=== PATIENT | female | born 1935 | race Caucasian/White ===

== ENCOUNTER 2016-08-04 13:59 | Outpatient (CLI) | payer OTHER ==
--- NOTE | 2016-08-04 14:24 | DIAGNOSTIC IMAGING REPORT ---
PROCEDURE: MG UNILAT SCREEN-LEFT W/CAD INDICATION: Screening. Right breast carcinoma and mastectomy. Family history breast carcinoma (mother, niece). TECHNIQUE: CC and MLO digital views. COMPARISON: Compared to 07/29/2013, 07/14/2012, and 03/18/2011. FINDINGS: Computer-aided detection applied. Moderately dense and nodular with a few dystrophic calcifications. No change. IMPRESSION: 1. Negative left mammogram. RESULT CODE: 2- Benign finding(s). A. A negative report should not delay biopsy if a dominant or clinically suspicious mass is present. 10-15% of cancers are not identified by x-ray. B. A negative report may reinforce clinical impression. C. Adenosis and dense breasts may obscure an underlying neoplasm. D. False positive reports average 6-10%. E.. A yearly screening mammogram is recommended. A reminder letter will be scheduled.
== END 2016-08-04 23:00 ==
LOC: MAM SRH 13:59
DX: Z12.31 Encounter for screening mammogram for malignant neoplasm of breast (principal); Z80.3 Family history of malignant neoplasm of breast; Z85.3 Personal history of malignant neoplasm of breast

== ENCOUNTER 2016-08-15 05:39 | Emergency (ER) | payer OTHER ==
--- NOTE | 2016-08-15 06:19 | ED CLINICAL REPORT ---
Clinical Report - Physicians/Mid Levels [facility] [address] [place] [address] 08/15/2016 5:39 [id number] Time Seen: 05:46; initial patient contact. Arrived- By ambulance. Historian- patient. HISTORY OF PRESENT ILLNESS Chief Complaint: RIGHT HIP INJURY. The injury occurred about 2 days ago. Occurred at a [facility]. Fell while walking; tripped. The patient complains of moderate pain in the right lower extremity (hip). No blow to the head, neck pain or loss of consciousness. REVIEW OF SYSTEMS No numbness, chest pain, bladder dysfunction or laceration. All systems otherwise negative, except as recorded above. PAST HISTORY Dizziness. Hypovolemia. Tetanus Status. Immunizations. Herpes Zoster. Breast Cancer. Elevated Cholesterol. Hypertension. Parkinson's Disease. ADDITIONAL SURGERIES: Cholecystectomy. Colonoscopy. . Lower eyelid surgery. Mastectomy. Tonsillectomy. SOCIAL HISTORY Never smoker. No alcohol use or drug use. ADDITIONAL NOTES The nursing notes have been reviewed. PHYSICAL EXAM Appearance: Alert. Oriented X3. No acute distress. Head: Head non-tender. ENT: Pharynx normal. Neck: Painless ROM. Non-tender. Back: No tenderness. ROM normal. Skin: Skin intact. Skin warm and dry. Normal skin color. Extremities: Right hip: mild tenderness located in the lateral aspect of the hip. Neurovascular intact distally. No erythema, swelling, abrasion, ecchymosis or deformity. Neuro: Oriented X 3. No motor deficit. LABS, X-RAYS, AND EKG Rt Hip X-ray: No fracture. Normal alignment. No bony lesion, air in the soft tissue or foreign body. Soft tissues normal. Joint spaces normal. Views: 2 view hip series. Technique: good. The X-rays were independently viewed by me and interpreted contemporaneously by me. Prior films were not available for comparison. Interpretation time: 06:16. PROGRESS AND PROCEDURES Disposition: Discharged to fdc in good condition. Condition: good. CLINICAL IMPRESSION Single contusion to the right hip.No hematoma or skin abrasion. INSTRUCTIONS Apply ice for 20 minutes four times a day until better. Don't apply ice directly to skin. Your Current Medications: CONTINUE TAKING THE FOLLOWING MEDICATIONS: Advil Oral : 200 mg 3x a day. Carbidopa-Levodopa Oral : 25/100 mg 2x a day. Celecoxib Oral. Cortisone injections in hips *. Entacapone Oral : Tablet 200 mg, 2x daily. Glucosamine Chondroitin Joint Oral. Levothyroxine Sodium Oral : 75 mcg. Lisinopril Oral : 40 mg. Lovastatin Oral : 40mg. Magnesium Oral : 64 mg sa 2x a day. Melatonin Oral. Ropinerole* : 25mcg HCG 2x a day. Tylenol Oral : 1000mg 3x a day. Follow-up: Follow up with your doctor in about three days. Call for an appointment. Blood pressure screening was not performed during this visit because the patient has an active diagnosis of hypertension. (Electronically signed by Siddhartha Pastrana Dr. 08/15/2016 6:30)
--- NOTE | 2016-08-15 06:19 | ED ORDER SUMMARY ---
..... Patient: NAHOMI MOE OrderSheet [facility] VisitID: [id number] [address] [place] [address] 81y, F Registration Date/Time: 08/15/2016 ORDER SHEET Weight: 68.4 kg (stated) Allergies: NKDA GENERAL ORDERS: Hip 2V Right w AP Pelvis Urgent (05:46 08/15/2016 Yang Canseco) (Ack 5:48 AMcQuoid ER Tech1) (6:02 Peter) MEDICATION ORDERS: IV FLUIDS: ORDER SHEET NOTES: [Electronically signed by Siddhartha Pastrana Dr. (06:30 08/15/2016)] [Electronically signed by Julissa Wei (06:55 08/15/2016)] [Electronically locked/signed by Julissa Wei (06:55 08/15/2016)]
--- NOTE | 2016-08-15 06:19 | ED NURSING NOTES ---
Clinical Report - Nurses [facility] [address] [place] [address] 08/15/2016 5:39 [id number] Triage time 05:44 Aug 15 2016. Acuity: LEVEL 3. Chief Complaint: FALL while walking, onto a carpeted surface; lost balance. SEPSIS SCREEN: Sepsis Screen: negative. Negative (no infection suspected/documented). AJ COMA SCORE: [place] Coma Scale: 15- eyes open spontaneously (4); best verbal response- oriented x 4 (5); best motor response- obeys commands (6). --05:54 Julissa Wei 05:44 08/15/16. BP: 172/76. HR: 72. RR: 20. O2 saturation: 96% on room air. Temp: 98.8 F (oral). Pain level now: 12/28. --05:54 Julissa Wei. Weight: 68.4 kg stated. Height/Length: 62 inches Per Patient. BMI: 27.6. --05:48 Julissa Wei. Medications Advil Oral 200 mg, 3x a day. Carbidopa-Levodopa Oral 25/100 mg, 2x a day. Entacapone Oral (Tablet 200 mg), 2x daily. Levothyroxine Sodium Oral 75 mcg. Lisinopril Oral 40 mg. Lovastatin Oral 40mg. Magnesium Oral 64 mg sa, 2x a day. Melatonin Oral. Ropinerole 25mcg HCG , 2x a day. Tylenol Oral 1000mg, 3x a day. --05:51 Julissa Wei Celecoxib Oral. --05:51 Julissa Wei Glucosamine Chondroitin Joint Oral. --05:52 Julissa Wei Cortisone injections in hips . --05:52 Julissa Wei. Allergies NKDA. --05:52 Julissa Wei. Medication/allergy information source: the patient. --05:54 Julissa Wei. History Arrived by EMS. Historian: patient. Unaccompanied. Location of injuries: right hip. This occurred (2 days ago). Occurred at home. ( Patient reports that she was walking at her assisted living facility when she lost her balance and fell. She states she is unsure of why she fell and that she felt her legs just give out. She complains of right hip pain.). She has had trouble walking. PAST MEDICAL HX: Immunizations: up-to-date. The patient is post-menopausal. SOCIAL HX: Never smoker. No alcohol use or drug use. No infectious disease exposure. ABUSE ASSESSMENT: No report of abuse. NUTRITIONAL RISK ASSESSMENT: The nutritional risk assessment revealed no deficiencies. LEARNING NEEDS ASSESSMENT: The learning needs assessment revealed no barriers. FALL RISK ASSESSMENT: Fall risk assessment completed. Risk factors identified include patient medications, age greater than 65 years, history of fall and impairment. Fall interventions initiated. Patient placed on stretcher. Side rails up x2. Brakes on Bed in low position. Call light in reach of patient. Instructed not to get up without assistance. FUNCTIONAL ASSESSMENT: Functional assessment performed: requires assistance with the activities of daily living; uses walker. SKIN INTEGRITY ASSESSMENT: Skin integrity risk assessment completed. No skin integrity risk identified. --05:54 Julissa Wei Treatment RACECAR DRIVER: See EMS report. EMS treatment RACECAR DRIVER verbally communicated and report reviewed. See report. BP: 184 / 72. HR: 60. O2 saturation: 91 % room air. --05:55 Julissa Wei. PROBLEMS: Dizziness. Hypovolemia. Tetanus Status. Immunizations. Herpes Zoster. Breast Cancer. Elevated Cholesterol. Hypertension. Parkinson's Disease. --05:53 Julissa Wei. ADDITIONAL SURGERIES: Cholecystectomy. Colonoscopy. . Lower eyelid surgery. Mastectomy. Tonsillectomy. --05:53 Julissa Wei. Interventions ID band on patient. To treatment room. --05:54 Julissa Wei. PHYSICAL ASSESSMENT To room via stretcher. Patient gowned. GENERAL / NEURO / PSYCH: Alert. Oriented X 4. Appears in no acute distress. HEENT: Pupils equal, round and reactive to light. Head non-tender. RESPIRATORY: Respirations not labored. CVS: Normal heart rate and rhythm. GI / : Abdomen soft and nontender. EXTREMITIES: Right hip: tenderness. No erythema, swelling or ecchymosis. The right leg is not shortened. SKIN: Skin intact. Skin is warm and dry. --05:54 Julissa Wei. NURSING PROGRESS NOTES Reassurance given to the patient. Two patient identifiers checked. Call light placed in reach. Side rails up x 1. Bed placed in lowest position. Brakes of bed on. --05:55 Julissa Wei Patient transported to radiology by stretcher with tech. (05:55 Aug 15 2016). --05:55 Julissa Wei 06:16 08/15/16. BP: 129/63. HR: 61. RR: 20. O2 saturation: 100% on room air. Pain level now: 12/28. --06:17 Julissa Wei. DISPOSITION / DISCHARGE 06:25 08/15/16. Condition at departure: stable. The goals identified in the patient's plan of care were met. --06:25 Julissa Wei 06:22 08/15/16. BP: 115/50. HR: 68. RR: 20. O2 saturation: 96% on room air. Temp: 98.8 F (oral). Pain level now: 08/27. --06:25 Julissa Wei No learning barriers present. Discharge instructions provided and reviewed with the patient and family. Patient and family verbalized understanding. Written instructions provided in Arabic. ( Follow up with your PCP as needed. Apply ice for twenty minutes at a time. Take anti-inflammatories as needed. Use caution when ambulating, ensure al paths are clear of rugs and cords. Use nightlights in halls and bathrooms. Patient and family verbalized understanding and had no questions at this time.). The patient was discharged by the physician. She was discharged home and accompanied by family. She left the Emergency Department in a wheelchair and via private vehicle. Family member driving. --06:29 Julissa Wei. Locked/Released at 08/15/2016 6:55 by Julissa Wei,
--- NOTE | 2016-08-15 06:19 | ED CLINICAL REPORT ---
Clinical Report - Physicians/Mid Levels [facility] [address] [place] [address] 08/15/2016 5:39 [id number] Time Seen: 05:46; initial patient contact. Arrived- By ambulance. Historian- patient. HISTORY OF PRESENT ILLNESS Chief Complaint: RIGHT HIP INJURY. The injury occurred about 2 days ago. Occurred at a longterm. Fell while walking; tripped. The patient complains of moderate pain in the right lower extremity (hip). No blow to the head, neck pain or loss of consciousness. REVIEW OF SYSTEMS No numbness, chest pain, bladder dysfunction or laceration. All systems otherwise negative, except as recorded above. PAST HISTORY Dizziness. Hypovolemia. Tetanus Status. Immunizations. Herpes Zoster. Breast Cancer. Elevated Cholesterol. Hypertension. Parkinson's Disease. ADDITIONAL SURGERIES: Cholecystectomy. Colonoscopy. . Lower eyelid surgery. Mastectomy. Tonsillectomy. SOCIAL HISTORY Never smoker. No alcohol use or drug use. ADDITIONAL NOTES The nursing notes have been reviewed. PHYSICAL EXAM Appearance: Alert. Oriented X3. No acute distress. Head: Head non-tender. ENT: Pharynx normal. Neck: Painless ROM. Non-tender. Back: No tenderness. ROM normal. Skin: Skin intact. Skin warm and dry. Normal skin color. Extremities: Right hip: mild tenderness located in the lateral aspect of the hip. Neurovascular intact distally. No erythema, swelling, abrasion, ecchymosis or deformity. Neuro: Oriented X 3. No motor deficit. LABS, X-RAYS, AND EKG Rt Hip X-ray: No fracture. Normal alignment. No bony lesion, air in the soft tissue or foreign body. Soft tissues normal. Joint spaces normal. Views: 2 view hip series. Technique: good. The X-rays were independently viewed by me and interpreted contemporaneously by me. Prior films were not available for comparison. Interpretation time: 06:16. PROGRESS AND PROCEDURES Disposition: Discharged to longterm in good condition. Condition: good. CLINICAL IMPRESSION Single contusion to the right hip.No hematoma or skin abrasion. INSTRUCTIONS Apply ice for 20 minutes four times a day until better. Don't apply ice directly to skin. Your Current Medications: CONTINUE TAKING THE FOLLOWING MEDICATIONS: Advil Oral : 200 mg 3x a day. Carbidopa-Levodopa Oral : 25/100 mg 2x a day. Celecoxib Oral. Cortisone injections in hips *. Entacapone Oral : Tablet 200 mg, 2x daily. Glucosamine Chondroitin Joint Oral. Levothyroxine Sodium Oral : 75 mcg. Lisinopril Oral : 40 mg. Lovastatin Oral : 40mg. Magnesium Oral : 64 mg sa 2x a day. Melatonin Oral. Ropinerole* : 25mcg HCG 2x a day. Tylenol Oral : 1000mg 3x a day. Follow-up: Follow up with your doctor in about three days. Call for an appointment. Blood pressure screening was not performed during this visit because the patient has an active diagnosis of hypertension. (Electronically signed by Siddhartha Pastrana Dr. 08/15/2016 6:30)
--- NOTE | 2016-08-15 06:19 | ED NURSING NOTES ---
Clinical Report - Nurses [facility] [address] [place] [address] 08/15/2016 5:39 [id number] Triage time 05:44 Aug 15 2016. Acuity: LEVEL 3. Chief Complaint: FALL while walking, onto a carpeted surface; lost balance. SEPSIS SCREEN: Sepsis Screen: negative. Negative (no infection suspected/documented). AJ COMA SCORE: [place] Coma Scale: 15- eyes open spontaneously (4); best verbal response- oriented x 4 (5); best motor response- obeys commands (6). --05:54 Julissa Wei 05:44 08/15/16. BP: 172/76. HR: 72. RR: 20. O2 saturation: 96% on room air. Temp: 98.8 F (oral). Pain level now: 12/28. --05:54 Julissa Wei. Weight: 68.4 kg stated. Height/Length: 62 inches Per Patient. BMI: 27.6. --05:48 Julissa Wei. Medications Advil Oral 200 mg, 3x a day. Carbidopa-Levodopa Oral 25/100 mg, 2x a day. Entacapone Oral (Tablet 200 mg), 2x daily. Levothyroxine Sodium Oral 75 mcg. Lisinopril Oral 40 mg. Lovastatin Oral 40mg. Magnesium Oral 64 mg sa, 2x a day. Melatonin Oral. Ropinerole 25mcg HCG , 2x a day. Tylenol Oral 1000mg, 3x a day. --05:51 Julissa Wei Celecoxib Oral. --05:51 Julissa Wei Glucosamine Chondroitin Joint Oral. --05:52 Julissa Wei Cortisone injections in hips . --05:52 Julissa Wei. Allergies NKDA. --05:52 Julissa Wei. Medication/allergy information source: the patient. --05:54 Julissa Wei. History Arrived by EMS. Historian: patient. Unaccompanied. Location of injuries: right hip. This occurred (2 days ago). Occurred at home. ( Patient reports that she was walking at her assisted living facility when she lost her balance and fell. She states she is unsure of why she fell and that she felt her legs just give out. She complains of right hip pain.). She has had trouble walking. PAST MEDICAL HX: Immunizations: up-to-date. The patient is post-menopausal. SOCIAL HX: Never smoker. No alcohol use or drug use. No infectious disease exposure. ABUSE ASSESSMENT: No report of abuse. NUTRITIONAL RISK ASSESSMENT: The nutritional risk assessment revealed no deficiencies. LEARNING NEEDS ASSESSMENT: The learning needs assessment revealed no barriers. FALL RISK ASSESSMENT: Fall risk assessment completed. Risk factors identified include patient medications, age greater than 65 years, history of fall and impairment. Fall interventions initiated. Patient placed on stretcher. Side rails up x2. Brakes on Bed in low position. Call light in reach of patient. Instructed not to get up without assistance. FUNCTIONAL ASSESSMENT: Functional assessment performed: requires assistance with the activities of daily living; uses walker. SKIN INTEGRITY ASSESSMENT: Skin integrity risk assessment completed. No skin integrity risk identified. --05:54 Julissa Wei Treatment SERVICE DESK SPECIALIST: See EMS report. EMS treatment SERVICE DESK SPECIALIST verbally communicated and report reviewed. See report. BP: 184 / 72. HR: 60. O2 saturation: 91 % room air. --05:55 Julissa Wei. PROBLEMS: Dizziness. Hypovolemia. Tetanus Status. Immunizations. Herpes Zoster. Breast Cancer. Elevated Cholesterol. Hypertension. Parkinson's Disease. --05:53 Julissa Wei. ADDITIONAL SURGERIES: Cholecystectomy. Colonoscopy. . Lower eyelid surgery. Mastectomy. Tonsillectomy. --05:53 Julissa Wei. Interventions ID band on patient. To treatment room. --05:54 Julissa Wei. PHYSICAL ASSESSMENT To room via stretcher. Patient gowned. GENERAL / NEURO / PSYCH: Alert. Oriented X 4. Appears in no acute distress. HEENT: Pupils equal, round and reactive to light. Head non-tender. RESPIRATORY: Respirations not labored. CVS: Normal heart rate and rhythm. GI / : Abdomen soft and nontender. EXTREMITIES: Right hip: tenderness. No erythema, swelling or ecchymosis. The right leg is not shortened. SKIN: Skin intact. Skin is warm and dry. --05:54 Julissa Wei. NURSING PROGRESS NOTES Reassurance given to the patient. Two patient identifiers checked. Call light placed in reach. Side rails up x 1. Bed placed in lowest position. Brakes of bed on. --05:55 Julissa Wei Patient transported to radiology by stretcher with tech. (05:55 Aug 15 2016). --05:55 Julissa Wei 06:16 08/15/16. BP: 129/63. HR: 61. RR: 20. O2 saturation: 100% on room air. Pain level now: 12/28. --06:17 Julissa Wei. DISPOSITION / DISCHARGE 06:25 08/15/16. Condition at departure: stable. The goals identified in the patient's plan of care were met. --06:25 Julissa Wei 06:22 08/15/16. BP: 115/50. HR: 68. RR: 20. O2 saturation: 96% on room air. Temp: 98.8 F (oral). Pain level now: 08/27. --06:25 Julissa Wei No learning barriers present. Discharge instructions provided and reviewed with the patient and family. Patient and family verbalized understanding. Written instructions provided in Thai. ( Follow up with your PCP as needed. Apply ice for twenty minutes at a time. Take anti-inflammatories as needed. Use caution when ambulating, ensure al paths are clear of rugs and cords. Use nightlights in halls and bathrooms. Patient and family verbalized understanding and had no questions at this time.). The patient was discharged by the physician. She was discharged home and accompanied by family. She left the Emergency Department in a wheelchair and via private vehicle. Family member driving. --06:29 Julissa Wei. Locked/Released at 08/15/2016 6:55 by Julissa Wei,
--- NOTE | 2016-08-15 06:19 | ED ORDER SUMMARY ---
..... Patient: NAHOMI MOE OrderSheet [facility] VisitID: [id number] [address] [place] [address] 81y, F Registration Date/Time: 08/15/2016 ORDER SHEET Weight: 68.4 kg (stated) Allergies: NKDA GENERAL ORDERS: Hip 2V Right w AP Pelvis Urgent (05:46 08/15/2016 Yang Canseco) (Ack 5:48 AMcQuoid ER Tech1) (6:02 Peter) MEDICATION ORDERS: IV FLUIDS: ORDER SHEET NOTES: [Electronically signed by Siddhartha Pastrana Dr. (06:30 08/15/2016)] [Electronically signed by Julissa Wei (06:55 08/15/2016)] [Electronically locked/signed by Julissa Wei (06:55 08/15/2016)]
--- NOTE | 2016-08-15 06:55 | ED MED RECONCILIATION SUMMARY ---
Patient: NAHOMI MOE Medication Reconciliation Report [facility] VisitID: [id number] [address] [place] [address] 81y, F Registration Date/Time: 08/15/2016 Weight: 68.4 kg Height/Length: 62 in. BMI: 27.6 ALLERGIES: NKDA The patient's Home Medications are listed below: CONTINUE TAKING THE FOLLOWING MEDICATIONS: Advil Oral 200 mg, 3x a day Carbidopa-Levodopa Oral 25/100 mg, 2x a day Celecoxib Oral Cortisone injections in hips Entacapone Oral (200 mg), 2x daily Glucosamine Chondroitin Joint Oral Levothyroxine Sodium Oral 75 mcg Lisinopril Oral 40 mg Lovastatin Oral 40mg Magnesium Oral 64 mg sa, 2x a day Melatonin Oral Ropinerole 25mcg HCG , 2x a day Tylenol Oral 1000mg, 3x a day The source(s) of the original Home Medication information: patient The following Medications were given to the patient in the Emergency Department: None. The following Medications were prescribed to the patient: None.
--- NOTE | 2016-08-15 06:55 | ED MAR SUMMARY ---
..... Medication Administration Record [facility] [address] [place], [place] [id number] Patient: NAHOMI MOE Visit ID: [id number] 81y, F Weight: 68.4 kg Height/Length: 62 in BMI: 27.6 ALLERGIES: NKDA
--- NOTE | 2016-08-15 06:55 | ED DISCHARGE INSTRUCTIONS ---
Patient: NAHOMI MOE General Instructions [facility] VisitID: [id number] [place] [address] 81y, F Registration Date/Time: 08/15/2016 Single contusion to the right hip.No hematoma or skin abrasion. INSTRUCTIONS Apply ice for 20 minutes four times a day until better. Don't apply ice directly to skin. Your Current Medications: CONTINUE TAKING THE FOLLOWING MEDICATIONS: Advil Oral : 200 mg 3x a day. Carbidopa-Levodopa Oral : 25/100 mg 2x a day. Celecoxib Oral. Cortisone injections in hips *. Entacapone Oral : Tablet 200 mg, 2x daily. Glucosamine Chondroitin Joint Oral. Levothyroxine Sodium Oral : 75 mcg. Lisinopril Oral : 40 mg. Lovastatin Oral : 40mg. Magnesium Oral : 64 mg sa 2x a day. Melatonin Oral. Ropinerole* : 25mcg HCG 2x a day. Tylenol Oral : 1000mg 3x a day. Follow-up: Follow up with your doctor in about three days. Call for an appointment. Blood pressure screening was not performed during this visit because the patient has an active diagnosis of hypertension. ADDITIONAL INFORMATION Contusion:Lower Extremity You have a CONTUSION of your LOWER extremity (leg, knee, ankle, foot, or toes). This causes local pain, swelling and sometimes bruising. There are no broken bones. This injury may take from a few days to a few weeks to heal. Home Care: 1) Keep your leg elevated to reduce pain and swelling. When sleeping, place a pillow under the injured leg. When sitting, support the injured leg so it is level with your waist. This is very important during the first 48 hours. 2) If CRUTCHES have been advised, do not bear full weight on the injured leg until you can do so without pain. You may return to sports when you are able to hop and run on the injured leg without pain. 3) Apply an ice pack (ice cubes in a plastic bag, wrapped in a towel) over the injured area for 20 minutes every 1-2 hours the first day for pain relief. Continue this 3-4 times a day until the pain and swelling goes away. 4) You may use acetaminophen (Tylenol) or ibuprofen (Motrin, Advil) to control pain, unless another pain medicine was prescribed. [ NOTE : If you have chronic liver or kidney disease or ever had a stomach ulcer or GI bleeding, talk with your doctor before using these medicines.] Follow Up with your doctor or this facility if you are not starting to improve within the next THREE days. [NOTE: If X-rays were taken, they will be reviewed by a radiologist. You will be notified of any new findings that may affect your care.] Get Prompt Medical Attention if any of the following occur: -- Pain or swelling increases -- Toes become cold, blue, numb or tingly -- Redness, warmth or drainage from the skin You have been given the following additional information: Contusion, Lower Extremity (Electronically signed by Siddhartha Pastrana Dr. 08/15/2016 6:30)
--- NOTE | 2016-08-15 06:55 | ED MED RECONCILIATION SUMMARY ---
Patient: NAHOMI MOE Medication Reconciliation Report [facility] VisitID: [id number] [address] [place] [address] 81y, F Registration Date/Time: 08/15/2016 Weight: 68.4 kg Height/Length: 62 in. BMI: 27.6 ALLERGIES: NKDA The patient's Home Medications are listed below: CONTINUE TAKING THE FOLLOWING MEDICATIONS: Advil Oral 200 mg, 3x a day Carbidopa-Levodopa Oral 25/100 mg, 2x a day Celecoxib Oral Cortisone injections in hips Entacapone Oral (200 mg), 2x daily Glucosamine Chondroitin Joint Oral Levothyroxine Sodium Oral 75 mcg Lisinopril Oral 40 mg Lovastatin Oral 40mg Magnesium Oral 64 mg sa, 2x a day Melatonin Oral Ropinerole 25mcg HCG , 2x a day Tylenol Oral 1000mg, 3x a day The source(s) of the original Home Medication information: patient The following Medications were given to the patient in the Emergency Department: None. The following Medications were prescribed to the patient: None.
--- NOTE | 2016-08-15 06:55 | ED MAR SUMMARY ---
..... Medication Administration Record [facility] [address] [place], [place] [id number] Patient: NAHOMI MOE Visit ID: [id number] 81y, F Weight: 68.4 kg Height/Length: 62 in BMI: 27.6 ALLERGIES: NKDA
--- NOTE | 2016-08-15 07:06 | DIAGNOSTIC IMAGING REPORT ---
PROCEDURE: XR HIP 2VW W W/O AP PELVIS-RT INDICATION: TRAUMA/INJURY TECHNIQUE: AP view of the pelvis and hips with lateral view of the right hip. COMPARISON: None. FINDINGS: RIGHT HIP: No fracture or dislocation. Normal joint space. PELVIS: Osteopenia. No suspicious osseous lesion. Atherosclerosis. IMPRESSION: 1. No evidence of a fracture 2. Osteopenia
== END 2016-08-15 06:40 | disposition home or self-care (01) ==
LOC: ED SRH 05:39
DX: S70.01XA Contusion of right hip, initial encounter (principal); W01.0XXA Fall on same level from slipping, tripping and stumbling without subsequent striking against object, initial encounter; Y93.01 Activity, walking, marching and hiking; Y92.129 Unspecified place in nursing home as the place of occurrence of the external cause; I10 Essential (primary) hypertension; G20 Parkinson's disease; Z79.899 Other long term (current) drug therapy

== ENCOUNTER 2016-10-03 10:33 | Emergency (ER) | payer OTHER ==
--- NOTE | 2016-10-03 17:18 | ED ORDER SUMMARY ---
..... Patient: NAHOMI MOE OrderSheet [facility] VisitID: [id number] [place] [address] 81y, F Registration Date/Time: 10/03/2016 ORDER SHEET Weight: 68.4 kg Allergies: NKDA GENERAL ORDERS: CBC w Diff Urgent (10:45 10/03/2016 Yang Canseco) (Ack 10:47 Shanika) (11:05 EBsachi) CMP Urgent (10:10/03/2016 Yang Canseco) (Ack 10:47 Shanika) (11:05 EBsachi) UA-Culture if indicated Urgent (10:45 10/03/2016 Yang Canseco) (Ack 10:47 Shanika) (12:12 Shanika) UA-Culture if indicated Urgent (14:51 10/03/2016 Yang Canseco) (14:[facility] MEDICATION ORDERS: IV FLUIDS: IV Saline Lock (10:45 10/03/2016 Yang Canseco) (11:05 EBsachi) IV NS : initial bolus none -, then 1000 mL/hr for X1 (NOW) (11:11 10/03/2016 Yang Canseco) (Ack 11:21 Ruthy) (14:29 [facility]) Zofran IV 4 mg (NOW) (11:12 10/03/2016 Yang Canseco) (Ack 11:21 Ruthy) (Hold 14:51 [facility]) Ceftriaxone IV 1 gm/50mL (NOW) (16:21 10/03/2016 Yang Canseco) (16:28 Ruthy) ORDER SHEET NOTES: [Electronically signed by Jahaira Baer (17:41 10/03/2016)] [Electronically signed by Siddhartha Pastrana Dr. (08:42 10/06/2016)] [Electronically locked/signed by Jahaira Baer (17:41 10/03/2016)]
--- NOTE | 2016-10-03 17:18 | ED CLINICAL REPORT ---
Clinical Report - Physicians/Mid Levels [facility] [address] [place] [address] 10/03/2016 10:34 Patient: NAHOMI MOE Time Seen: 10:42; initial patient contact. Arrived- By private vehicle. Historian- patient. HISTORY OF PRESENT ILLNESS Chief Complaint: DYSURIA. This started about 3 weeks ago and still present. It was gradual in onset and has been constant. The symptoms are described as mild. The patient has had abdominal pain. No pelvic pain, vaginal pain, low back pain, flank pain or hematuria. She has had pain with urination and urgency of urination. The patient has had urinary frequency. Not sexually active. Similar symptoms previously: Many times. ( Pt is currently on Bactrim for a UTI). REVIEW OF SYSTEMS The patient has had nausea. No vomiting, diarrhea, headache, fever or chills. All systems otherwise negative, except as recorded above. PAST HISTORY ( Dizziness. Hypovolemia. Tetanus Status. Immunizations. Herpes Zoster. Breast Cancer. Elevated Cholesterol. Hypertension. Parkinson's Disease. SURGERIES: Cholecystectomy. Colonoscopy. . Lower eyelid surgery. Mastectomy. Tonsillectomy.). Medications: Aricept Oral. Advil Oral 200 mg, 3x a day. Carbidopa-Levodopa Oral 25/100 mg, 2x a day. Celecoxib Oral. Cortisone injections in hips . Entacapone Oral (Tablet 200 mg), 2x daily. Glucosamine Chondroitin Joint Oral. Levothyroxine Sodium Oral 75 mcg. Lisinopril Oral 40 mg. Lovastatin Oral 40mg. Magnesium Oral 64 mg sa, 2x a day. Melatonin Oral. Ropinerole 25mcg HCG , 2x a day. Tylenol Oral 1000mg, 3x a day. Allergies: NKDA. SOCIAL HISTORY Smoker - current status unknown. No drug use. ADDITIONAL NOTES The nursing notes have been reviewed. PHYSICAL EXAM Vital Signs: 10/03/2016 10:48 BP: 144/58. HR: 66. RR: 14. O2 saturation: 98%. Temp: 97.9 F. Have been reviewed. Hypertensive. Heart rate normal. Respiratory rate normal. Temperature normal. Oxygen saturation normal. Appearance: Alert. Oriented X3. No acute distress. HEENT: Normal external inspection. CVS: Heart sounds normal. Rate normal. Rhythm normal. Respiratory: No respiratory distress. Breath sounds normal. Abdomen: Soft. Mild tenderness in the suprapubic area. No guarding or rebound tenderness. Bowel sounds normal. No organomegaly. No mass. Back: Normal external inspection. No CVA tenderness. Skin: Skin warm and dry. Normal skin color. No rash. Extremities: No lower extremity edema. Neuro: Oriented X 3. LABS, X-RAYS, AND EKG Laboratory Tests: UA-Culture if indicated: (SEDA: 10/03/2016 12:00) ( [facility] [place] [place] 12[facility]25[facility] Final results Test Result Flag Units (Reference) URINE COLOR ORANGE URINE APPEARANCE CLEAR URINE GLUCOSE (NEGATIVE) UNABLE TO REPORT DUE TO URINE COLOR INTERFERENCE URINE BILIRUBIN (NEGATIVE) UNABLE TO REPORT DUE TO URINE COLOR INTERFERENCE URINE KETONE (NEGATIVE) UNABLE TO REPORT DUE TO URINE COLOR INTERFERENCE URINE SPECIFIC GRAVITY (1.010-1.030) UNABLE TO REPORT DUE TO URINE COLOR INTERFERENCE URINE PH (5.0-8.0) UNABLE TO REPORT DUE TO URINE COLOR INTERFERENCE URINE PROTEIN (NEGATIVE) UNABLE TO REPORT DUE TO URINE COLOR INTERFERENCE URINE UROBILINOGEN EU/dL (0.2-1.0) UNABLE TO REPORT DUE TO URINE COLOR INTERFERENCE URINE NITRITE (NEGATIVE) UNABLE TO REPORT DUE TO URINE COLOR INTERFERENCE URINE BLOOD (NEGATIVE) UNABLE TO REPORT DUE TO URINE COLOR INTERFERENCE URINE LEUK ESTERASE (NEGATIVE) UNABLE TO REPORT DUE TO URINE COLOR INTERFERENCE URINE RBC 0-1 rbc/hpf (0-1) URINE WBC 1-3 wbc/hpf (0-1) URINE EPITHELIAL CELLS 5-10 EPI/hpf (0-5) URINE BACTERIA FEW (1+) (NONE SEEN) URINE COMMENT CULT NOT INDICATED 1+ MUCOUSPATIENT APPEARS TO BE ON PYRIDIUM CAUSING COLOR INTERFERENCEURINE CULTURES ARE SET-UP BASED ON THE FOLLOWING CRITERIA:POSITIVE NITRITEPOSITIVE LEUKOCYTE ESTERASEGREATER THAN 10 WHITE BLOOD CELLSMODERATE (2+) OR GREATER BACTERIA CBC w Diff: (SEDA: 10/03/2016 11:00) ( [facility] [place] 10/03/2016 11:16) Final results Test Result Flag Units (Reference) WHITE BLOOD COUNT 7.9 K/uL (4.5-11.5) RED BLOOD COUNT 3.97 L M/uL (4.00-5.20) HEMOGLOBIN 13.0 gm/dL (12.0-16.0) HEMATOCRIT 38.7 % (36.0-46.0) MEAN CELL VOLUME 97 fL (80-100) MEAN CORPUSCULAR HGB 33 pg (26-34) MEAN CORPUSCULAR HGB CONC 34 g/dL (31-37) RED CELL DISTRIBUTION WIDTH 14.5 % (11.6-14.8) PLATELET COUNT 194 K/uL (150-400) NEUTROPHIL % 79.9 H % (50-75) LYMPH % 13.7 L % (25-40) MONO % 4.7 % (3-14) EOSINOPHIL % 1.4 % (0-4) BASOPHIL % 0.3 % (0-2) CMP: (SEDA: 10/03/2016 11:00) ( [facility] 10/03/2016 11:44) Final results Test Result Flag Units (Reference) GLUCOSE 142 H mg/dL (70-110) BUN 22 H mg/dL (7-18) CREATININE 1.1 mg/dL (0.6-1.3) Estimated GFR 50.67 mL/min Estimated GFR- >60 mL/min Note: Persistent reduction over 3 months in eGFR<60 mL/min/1.73 m2 defines CKD. Patients with eGFR values>=60 mL/min/1.73 m2 may also have CKD if evidence ofpersistent proteinuria. Additional information may be foundat www.kidney.org. SODIUM 135 L mmol/L (136-145) POTASSIUM 4.2 mmol/L (3.5-5.1) CHLORIDE 101 mmol/L (98-107) CARBON DIOXIDE 29 mmol/L (21-32) CALCIUM 9.2 mg/dL (8.5-10.1) TOTAL PROTEIN 6.6 g/dL (6.4-8.2) ALBUMIN 3.7 g/dL (3.3-5.0) BILIRUBIN, TOTAL 0.5 mg/dL (0.0-1.0) ALKALINE PHOSPHATASE 63 U/L (46-116) AST (SGOT) 121 H U/L (15-37) ALT (SGPT) 29 U/L (12-78) . PROGRESS AND PROCEDURES Disposition: Discharged home in good condition. Condition: good. CLINICAL IMPRESSION Abnormal liver function test: AST/SGOT. Constipation INSTRUCTIONS (Stop taking the current antibiotic that you are on, you do not have a UTI). Your Current Medications: CONTINUE TAKING THE FOLLOWING MEDICATIONS: Advil Oral : 200 mg 3x a day. Aricept Oral. Carbidopa-Levodopa Oral : 25/100 mg 2x a day. Celecoxib Oral. Cortisone injections in hips *. Entacapone Oral : Tablet 200 mg, 2x daily. Glucosamine Chondroitin Joint Oral. Levothyroxine Sodium Oral : 75 mcg. Lisinopril Oral : 40 mg. Lovastatin Oral : 40mg. Magnesium Oral : 64 mg sa 2x a day. Melatonin Oral. Ropinerole* : 25mcg HCG 2x a day. Tylenol Oral : 1000mg 3x a day. Prescription Medications: Zofran (orally disintegrating tablets) 4 mg: take 1 orally every 6 hours as needed for nausea and vomiting. Dispense ten (10). No refill. Substitution is permissible. OTC Medications: Colace 100 mg capsules (available over the counter): take 1 capsule orally, twice daily and for 14 days. One refill. Substitution is permissible. Follow-up: Follow up with your doctor in about three days. Call for an appointment. Blood pressure screening was not performed during this visit because the patient has an active diagnosis of hypertension. (Electronically signed by Siddhartha Pastrana Dr. 10/06/2016 8:42)
--- NOTE | 2016-10-03 17:18 | ED NURSING NOTES ---
Clinical Report - Nurses Located Within [facility] [address] [place] [address] 10/03/2016 10:34 Patient: NAHOMI MOE TRIAGE Triage time 1040. Acuity: LEVEL 3. Chief Complaint: ABDOMINAL PAIN and NAUSEA and (dark urine, UTI sxs). Alert. No acute distress. --10:53 Jahaira Baer 10:48 10/03/16. BP: 144/58. HR: 66. RR: 14. O2 saturation: 98%. Temp: 97.9 F. Pain level now 04/29. --10:53 Jahaira Baer. Weight: 68.4 kg. Height/Length: 62 inches. BMI: 27.6. --10:47 Jahaira Baer. Medications Advil Oral 200 mg, 3x a day. Carbidopa-Levodopa Oral 25/100 mg, 2x a day. Celecoxib Oral. Cortisone injections in hips . Entacapone Oral (Tablet 200 mg), 2x daily. Glucosamine Chondroitin Joint Oral. Levothyroxine Sodium Oral 75 mcg. Lisinopril Oral 40 mg. Lovastatin Oral 40mg. Magnesium Oral 64 mg sa, 2x a day. Melatonin Oral. Ropinerole 25mcg HCG , 2x a day. Tylenol Oral 1000mg, 3x a day. --10:50 Jahaira Baer Aricept Oral. --10:50 Jahaira Baer. Allergies NKDA. --10:50 Jahaira Baer. History Arrived by private vehicle. Historian: patient and family. Accompanied by family. Onset. (1 weeks ago). She has had constipation. Treatment [employer]: Seen within the last 30 days at another facility in a clinic; seen for similar symptoms; labs done- urinalysis; treatment- antibiotic and prescription given. SOCIAL HX: Smoker- current status unknown. --10:53 Jahaira Baer. PROBLEMS: Contusion. Dizziness. Hypovolemia. Herpes Zoster. Breast Cancer. Elevated Cholesterol. Hypertension. Parkinson's Disease. --10:51 Jahaira Baer. ADDITIONAL SURGERIES: Cholecystectomy. Colonoscopy. . Lower eyelid surgery. Mastectomy. Tonsillectomy. --10:51 Jahaira Baer. Interventions ID band on patient. To treatment room. --10:53 Jahaira Baer. PHYSICAL ASSESSMENT To room via wheelchair. Patient gowned. GENERAL / NEURO / PSYCH: Alert. Oriented X 4. Appears in no acute distress. HEENT: Mucous membranes are pink. RESPIRATORY: Respirations not labored. Breath sounds within normal limits. CVS: Normal sinus rhythm noted. Capillary refill less than 2 seconds. GI / : The patient has had nausea. Obesity. Abdominal tenderness. Bowel sounds within normal limits. SKIN: Skin is warm and dry. --10:53 Jahaira Baer. NURSING PROGRESS NOTES Reassurance given. Call light placed in reach. Side rails up x 1. Bed placed in lowest position. Brakes of bed on. Patient ready for evaluation- chart flagged. --10:53 Jahaira Baer 11:05 10/03/2016 Site #1 started via IV in the left antecubital space with an 22g angiocath; one attempt. Blood drawn: rainbow set. Labeled in the presence of the patient and sent to the lab. Saline lock flushed with 10 mL saline. --11:05 Jahaira Baer In/out catheterization. During procedure hand hygiene observed and sterile equipment and aseptic technique used. She tolerated procedure well. Checked patient name and birthdate: patient confirmed. Catheterized urine collected with return of orange-colored cloudy urine; sample sent to lab for urinalysis and culture. Specimen labeled in the presence of the patient. Patient and family informed about reason for wait and about plan of care. Patient waiting for disposition. --13:32 Jahaira Baer 13:30 10/03/16. BP: 161/68. HR: 72. RR: 16. O2 saturation: 100%. --13:32 Jahaira Baer 14:29 10/03/2016 Started bag #1 1000 mL IV Fluids IV NS (Saline); at 1000 mL/hr over 1 hour(s) via site #1 via IV pump. Allergies verified and confirmed 5 rights. IV patency established. IV site checked: no pain, redness, or swelling. IV flushed thoroughly pre- and post-medication administration. --14:29 Jackei Rogers 14:29 10/03/16. ( Pt assisted back to bed from commode. Was provided extra warm blankets.). --14:29 Jackie Rogers 16:28 10/03/2016 Started 1 gm of Ceftriaxone IVPB in bag #1 50 mL; at 100 mL/hr over 30 minute(s) via site #1 via IV pump. Allergies verified and confirmed 5 rights. IV patency established. IV site checked: no pain, redness, or swelling. IV flushed thoroughly pre- and post-medication administration. --16:28 Jahaira Baer Reassessment after medication administered. She is calm and resting quietly and has had no adverse reaction. Overall patient status is the same- she states feels the same. --17:39 Jahaira Baer. DISPOSITION / DISCHARGE 17:40 10/03/2016 Site #1 removed upon discharge. Catheter intact. Pressure dressing applied. --17:40 Jahaira Baer 17:40 10/03/2016 IV Fluids IV NS Discontinued: bag #1 infused upon discharge. Total amount infused: 1000 mL. --17:40 Jahaira Baer 17:40 10/03/2016 Ceftriaxone IVPB Discontinued: bag #2 infused upon discharge. Total amount infused: 50 mL. --17:40 Jahaira Baer Departure time: 1730. Condition at departure: unchanged and stable. No learning barriers present. Discharge instructions provided and reviewed with the patient and family. Reviewed medication(s). Patient and family verbalized understanding. Written instructions provided in Hungarian. The patient was discharged by the physician. She was discharged home and accompanied by family. She left the Emergency Department in a wheelchair and via private vehicle. Family member driving. --17:41 Jahaira Baer 17:39 10/03/16. BP: 127/78. HR: 63. RR: 16. O2 saturation: 98%. Pain level now 2/10. --17:41 Jahaira Baer. Locked/Released at 10/03/2016 17:41 by Jahaira Baer,
--- NOTE | 2016-10-03 17:18 | ED ORDER SUMMARY ---
..... Patient: NAHOMI MOE OrderSheet [facility] VisitID: [id number] [place] [address] 81y, F Registration Date/Time: 10/03/2016 ORDER SHEET Weight: 68.4 kg Allergies: NKDA GENERAL ORDERS: CBC w Diff Urgent (10:45 10/03/2016 Yang Canseco) (Ack 10:47 Shanika) (11:05 EBsachi) CMP Urgent (10:10/03/2016 Yang Canseco) (Ack 10:47 Shanika) (11:05 EBsachi) UA-Culture if indicated Urgent (10:45 10/03/2016 Yang Canseco) (Ack 10:47 Shanika) (12:12 Shanika) UA-Culture if indicated Urgent (14:51 10/03/2016 Yang Canseco) (14:[facility] MEDICATION ORDERS: IV FLUIDS: IV Saline Lock (10:45 10/03/2016 Yang Canseco) (11:05 EBsachi) IV NS : initial bolus none -, then 1000 mL/hr for X1 (NOW) (11:11 10/03/2016 Yang Canseco) (Ack 11:21 Ruthy) (14:29 [facility]) Zofran IV 4 mg (NOW) (11:12 10/03/2016 Yang Canseco) (Ack 11:21 Ruthy) (Hold 14:51 [facility]) Ceftriaxone IV 1 gm/50mL (NOW) (16:21 10/03/2016 Yang Canseco) (16:28 Ruthy) ORDER SHEET NOTES: [Electronically signed by Jahaira Baer (17:41 10/03/2016)] [Electronically signed by Siddhartha Pastrana Dr. (08:42 10/06/2016)] [Electronically locked/signed by Jahaira Baer (17:41 10/03/2016)]
--- NOTE | 2016-10-06 08:43 | ED MAR SUMMARY ---
..... Medication Administration Record [facility] [address] [place] [address] Patient: NAHOMI MOE Visit ID: [id number] 81y, F Weight: 68.4 kg Height/Length: 62 in BMI: 27.6 ALLERGIES: NKDA Start 14:29 10/03/2016 Jackie Rogers,, Stop 17:40 10/03/2016 Jahaira Baer, Medication Administered: IV NS (SALINE), Dose: IV Fluids over 1 hour(s), Rate: 1000 mL/hr, Dispensed: 1000 mL bag, Site: #1 left AC. Medication Ordered: IV NS : initial bolus none -, then 1000 mL/hr for X1 (NOW). Start 16:28 10/03/2016 Jahaira Baer,, Stop 17:40 10/03/2016 Jahaira Baer, Medication Administered: CEFTRIAXONE [IVPB], Dose: 1 gm IVPB over 30 minute(s), Rate: 100 mL/hr, Dispensed: 50 mL bag, Site: #1 left AC. Medication Ordered: Ceftriaxone IV 1 gm/50mL (NOW).
--- NOTE | 2016-10-06 08:43 | ED DISCHARGE INSTRUCTIONS ---
Patient: NAHOMI MOE General Instructions [facility] VisitID: [id number] [place] [address] 81y, F Registration Date/Time: 10/03/2016 Abnormal liver function test: AST/SGOT. Constipation INSTRUCTIONS (Stop taking the current antibiotic that you are on, you do not have a UTI). Your Current Medications: CONTINUE TAKING THE FOLLOWING MEDICATIONS: Advil Oral : 200 mg 3x a day. Aricept Oral. Carbidopa-Levodopa Oral : 25/100 mg 2x a day. Celecoxib Oral. Cortisone injections in hips *. Entacapone Oral : Tablet 200 mg, 2x daily. Glucosamine Chondroitin Joint Oral. Levothyroxine Sodium Oral : 75 mcg. Lisinopril Oral : 40 mg. Lovastatin Oral : 40mg. Magnesium Oral : 64 mg sa 2x a day. Melatonin Oral. Ropinerole* : 25mcg HCG 2x a day. Tylenol Oral : 1000mg 3x a day. Prescription Medications: Zofran (orally disintegrating tablets) 4 mg: take 1 orally every 6 hours as needed for nausea and vomiting. Dispense ten (10). No refill. Substitution is permissible. OTC Medications: Colace 100 mg capsules (available over the counter): take 1 capsule orally, twice daily and for 14 days. One refill. Substitution is permissible. Follow-up: Follow up with your doctor in about three days. Call for an appointment. Blood pressure screening was not performed during this visit because the patient has an active diagnosis of hypertension. ADDITIONAL INFORMATION Constipation (Adult) Constipation is bowel movements that are less frequent than usual. Stools often become very hard and difficult to pass. This may lead to abdominal pain and bloating. It may also cause painful bowel movements. Constipation may be due to a diet thats low in fiber. Some medications, especially pain medications, can also cause it. Constipation may be treated with enemas, suppositories, laxatives or stool softeners. Your doctor will advise you which will work best for you. Follow the advice below to help avoid this problem in the future. Home Care Medication: Take any medicines as directed. Some laxatives are safe only for occasional use. Others can be taken on a regular basis. Talk to your doctor or pharmacist if you have questions. General Care: Prescription pain medications can cause constipation. If you are prescribed pain medications, ask the doctor whether you should also take a stool softener. A diet high in fiber with plenty of fluids helps to maintain regular, soft bowel movements. The following foods are good sources of dietary fiber: Cereals and breads: Whole grain cereal with bran, oatmeal, rolled oats, whole grain breads Fruits: All fruits (fresh and dried), raisins, prunes, apricots, berries, figs Vegetables: Any fresh vegetables, especially peas, broccoli, brussels sprouts, winter squash, green beans, cauliflower, elmore beans, carrots Other: Popcorn, brown rice Drink plenty of water when you increase the amount of fiber you eat. Follow Up with your doctor or return to this facility if symptoms do not improve in the next few days. You may require further tests or a referral to a specialist. Get Prompt Medical Attention if any of the following occur: Fever over 100.4F (38C) Failure to resume normal bowel movements Increasing abdominal or back pain Nausea or vomiting Abdominal swelling Blood in the stool Weakness, dizziness or fainting Unexpected vaginal bleeding Ondansetron Oral disintegrating tablet What is this medicine? ONDANSETRON (on KAVITA se alec) is used to treat nausea and vomiting caused by chemotherapy. It is also used to prevent or treat nausea and vomiting after surgery. How should I use this medicine? These tablets are made to dissolve in the mouth. Do not try to push the tablet through the foil backing. With dry hands, peel away the foil backing and gently remove the tablet. Place the tablet in the mouth and allow it to dissolve, then swallow. While you may take these tablets with water, it is not necessary to do so. Talk to your lokie engineer regarding the use of this medicine in children. Special care may be needed. What side effects may I notice from receiving this medicine? Side effects that you should report to your doctor or health child care lead teacher as soon as possible: allergic reactions like skin rash, itching or hives, swelling of the face, lips, or tongue breathing problems dizziness fast or irregular heartbeat feeling faint or lightheaded, falls fever and chills swelling of the hands and feet tightness in the chest Side effects that usually do not require medical attention (report to your doctor or health child care lead teacher if they continue or are bothersome): constipation or diarrhea headache What may interact with this medicine? Do not take this medicine with any of the following medications: -apomorphine -cisapride -dofetilide -dronedarone -pimozide -thioridazine -ziprasidone This medicine may also interact with the following medications: -carbamazepine -phenytoin -rifampicin -tramadol -other medicines that prolong the QT interval (cause an abnormal heart rhythm) What if I miss a dose? If you miss a dose, take it as soon as you can. If it is almost time for your next dose, take only that dose. Do not take double or extra doses. Where should I keep my medicine? Keep out of the reach of children. Store between 2 and 30 degrees C (36 and 86 degrees F). Throw away any unused medicine after the expiration date. What should I tell my health care provider before I take this medicine? They need to know if you have any of these conditions: heart disease history of irregular heartbeat liver disease low levels of magnesium or potassium in the blood an unusual or allergic reaction to ondansetron, granisetron, other medicines, foods, dyes, or preservatives or trying to get breast-feeding What should I watch for while using this medicine? Check with your doctor or health child care lead teacher as soon as you can if you have any sign of an allergic reaction. Docusate Sodium Oral tablet What is this medicine? DOCUSATE (doc CUE sayt) is stool softener. It helps prevent constipation and straining or discomfort associated with hard or dry stools. How should I use this medicine? Take this medicine by mouth with a glass of water. Follow the directions on the label. Take your doses at regular intervals. Do not take your medicine more often than directed. Talk to your lokie engineer regarding the use of this medicine in children. While this medicine may be prescribed for children as young as 2 years for selected conditions, precautions do apply. What side effects may I notice from receiving this medicine? Side effects that you should report to your doctor or health child care lead teacher as soon as possible: allergic reactions like skin rash, itching or hives, swelling of the face, lips, or tongue Side effects that usually do not require medical attention (report to your doctor or health child care lead teacher if they continue or are bothersome): diarrhea stomach cramps throat irritation What may interact with this medicine? mineral oil What if I miss a dose? If you miss a dose, take it as soon as you can. If it is almost time for your next dose, take only that dose. Do not take double or extra doses. Where should I keep my medicine? Keep out of the reach of children. Store at room temperature between 15 and 30 degrees C (59 and 86 degrees F). Throw away any unused medicine after the expiration date. What should I tell my health care provider before I take this medicine? They need to know if you have any of these conditions: nausea or vomiting severe constipation stomach pain sudden change in bowel habit lasting more than 2 weeks an unusual or allergic reaction to docusate, other medicines, foods, dyes, or preservatives or trying to get breast-feeding What should I watch for while using this medicine? Do not use for more than one week without advice from your doctor or health child care lead teacher. If your constipation returns, check with your doctor or health child care lead teacher. Drink plenty of water while taking this medicine. Drinking water helps decrease constipation. Stop using this medicine and contact your doctor or health child care lead teacher if you experience any rectal bleeding or do not have a bowel movement after use. These could be signs of a more serious condition. You have been given the following additional information: Constipation (Adult) Ondansetron Oral disintegrating tablet Docusate Sodium Oral tablet (Electronically signed by Siddhartha Pastrana Dr. 10/06/2016 8:42)
--- NOTE | 2016-10-06 08:43 | ED MAR SUMMARY ---
..... Medication Administration Record [facility] [address] [place] [address] Patient: NAHOMI MOE Visit ID: [id number] 81y, F Weight: 68.4 kg Height/Length: 62 in BMI: 27.6 ALLERGIES: NKDA Start 14:29 10/03/2016 Jackie Rogers,, Stop 17:40 10/03/2016 Jahaira Baer, Medication Administered: IV NS (SALINE), Dose: IV Fluids over 1 hour(s), Rate: 1000 mL/hr, Dispensed: 1000 mL bag, Site: #1 left AC. Medication Ordered: IV NS : initial bolus none -, then 1000 mL/hr for X1 (NOW). Start 16:28 10/03/2016 Jahaira Baer,, Stop 17:40 10/03/2016 Jahaira Baer, Medication Administered: CEFTRIAXONE [IVPB], Dose: 1 gm IVPB over 30 minute(s), Rate: 100 mL/hr, Dispensed: 50 mL bag, Site: #1 left AC. Medication Ordered: Ceftriaxone IV 1 gm/50mL (NOW).
--- NOTE | 2016-10-06 08:43 | ED DISCHARGE INSTRUCTIONS ---
Patient: NAHOMI MOE General Instructions [facility] VisitID: [id number] [place] [address] 81y, F Registration Date/Time: 10/03/2016 Abnormal liver function test: AST/SGOT. Constipation INSTRUCTIONS (Stop taking the current antibiotic that you are on, you do not have a UTI). Your Current Medications: CONTINUE TAKING THE FOLLOWING MEDICATIONS: Advil Oral : 200 mg 3x a day. Aricept Oral. Carbidopa-Levodopa Oral : 25/100 mg 2x a day. Celecoxib Oral. Cortisone injections in hips *. Entacapone Oral : Tablet 200 mg, 2x daily. Glucosamine Chondroitin Joint Oral. Levothyroxine Sodium Oral : 75 mcg. Lisinopril Oral : 40 mg. Lovastatin Oral : 40mg. Magnesium Oral : 64 mg sa 2x a day. Melatonin Oral. Ropinerole* : 25mcg HCG 2x a day. Tylenol Oral : 1000mg 3x a day. Prescription Medications: Zofran (orally disintegrating tablets) 4 mg: take 1 orally every 6 hours as needed for nausea and vomiting. Dispense ten (10). No refill. Substitution is permissible. OTC Medications: Colace 100 mg capsules (available over the counter): take 1 capsule orally, twice daily and for 14 days. One refill. Substitution is permissible. Follow-up: Follow up with your doctor in about three days. Call for an appointment. Blood pressure screening was not performed during this visit because the patient has an active diagnosis of hypertension. ADDITIONAL INFORMATION Constipation (Adult) Constipation is bowel movements that are less frequent than usual. Stools often become very hard and difficult to pass. This may lead to abdominal pain and bloating. It may also cause painful bowel movements. Constipation may be due to a diet thats low in fiber. Some medications, especially pain medications, can also cause it. Constipation may be treated with enemas, suppositories, laxatives or stool softeners. Your doctor will advise you which will work best for you. Follow the advice below to help avoid this problem in the future. Home Care Medication: Take any medicines as directed. Some laxatives are safe only for occasional use. Others can be taken on a regular basis. Talk to your doctor or pharmacist if you have questions. General Care: Prescription pain medications can cause constipation. If you are prescribed pain medications, ask the doctor whether you should also take a stool softener. A diet high in fiber with plenty of fluids helps to maintain regular, soft bowel movements. The following foods are good sources of dietary fiber: Cereals and breads: Whole grain cereal with bran, oatmeal, rolled oats, whole grain breads Fruits: All fruits (fresh and dried), raisins, prunes, apricots, berries, figs Vegetables: Any fresh vegetables, especially peas, broccoli, brussels sprouts, winter squash, green beans, cauliflower, elmore beans, carrots Other: Popcorn, brown rice Drink plenty of water when you increase the amount of fiber you eat. Follow Up with your doctor or return to this facility if symptoms do not improve in the next few days. You may require further tests or a referral to a specialist. Get Prompt Medical Attention if any of the following occur: Fever over 100.4F (38C) Failure to resume normal bowel movements Increasing abdominal or back pain Nausea or vomiting Abdominal swelling Blood in the stool Weakness, dizziness or fainting Unexpected vaginal bleeding Ondansetron Oral disintegrating tablet What is this medicine? ONDANSETRON (on KAVITA se alec) is used to treat nausea and vomiting caused by chemotherapy. It is also used to prevent or treat nausea and vomiting after surgery. How should I use this medicine? These tablets are made to dissolve in the mouth. Do not try to push the tablet through the foil backing. With dry hands, peel away the foil backing and gently remove the tablet. Place the tablet in the mouth and allow it to dissolve, then swallow. While you may take these tablets with water, it is not necessary to do so. Talk to your welding machine feeder regarding the use of this medicine in children. Special care may be needed. What side effects may I notice from receiving this medicine? Side effects that you should report to your doctor or health skin care technician as soon as possible: allergic reactions like skin rash, itching or hives, swelling of the face, lips, or tongue breathing problems dizziness fast or irregular heartbeat feeling faint or lightheaded, falls fever and chills swelling of the hands and feet tightness in the chest Side effects that usually do not require medical attention (report to your doctor or health skin care technician if they continue or are bothersome): constipation or diarrhea headache What may interact with this medicine? Do not take this medicine with any of the following medications: -apomorphine -cisapride -dofetilide -dronedarone -pimozide -thioridazine -ziprasidone This medicine may also interact with the following medications: -carbamazepine -phenytoin -rifampicin -tramadol -other medicines that prolong the QT interval (cause an abnormal heart rhythm) What if I miss a dose? If you miss a dose, take it as soon as you can. If it is almost time for your next dose, take only that dose. Do not take double or extra doses. Where should I keep my medicine? Keep out of the reach of children. Store between 2 and 30 degrees C (36 and 86 degrees F). Throw away any unused medicine after the expiration date. What should I tell my health care provider before I take this medicine? They need to know if you have any of these conditions: heart disease history of irregular heartbeat liver disease low levels of magnesium or potassium in the blood an unusual or allergic reaction to ondansetron, granisetron, other medicines, foods, dyes, or preservatives or trying to get breast-feeding What should I watch for while using this medicine? Check with your doctor or health skin care technician as soon as you can if you have any sign of an allergic reaction. Docusate Sodium Oral tablet What is this medicine? DOCUSATE (doc CUE sayt) is stool softener. It helps prevent constipation and straining or discomfort associated with hard or dry stools. How should I use this medicine? Take this medicine by mouth with a glass of water. Follow the directions on the label. Take your doses at regular intervals. Do not take your medicine more often than directed. Talk to your welding machine feeder regarding the use of this medicine in children. While this medicine may be prescribed for children as young as 2 years for selected conditions, precautions do apply. What side effects may I notice from receiving this medicine? Side effects that you should report to your doctor or health skin care technician as soon as possible: allergic reactions like skin rash, itching or hives, swelling of the face, lips, or tongue Side effects that usually do not require medical attention (report to your doctor or health skin care technician if they continue or are bothersome): diarrhea stomach cramps throat irritation What may interact with this medicine? mineral oil What if I miss a dose? If you miss a dose, take it as soon as you can. If it is almost time for your next dose, take only that dose. Do not take double or extra doses. Where should I keep my medicine? Keep out of the reach of children. Store at room temperature between 15 and 30 degrees C (59 and 86 degrees F). Throw away any unused medicine after the expiration date. What should I tell my health care provider before I take this medicine? They need to know if you have any of these conditions: nausea or vomiting severe constipation stomach pain sudden change in bowel habit lasting more than 2 weeks an unusual or allergic reaction to docusate, other medicines, foods, dyes, or preservatives or trying to get breast-feeding What should I watch for while using this medicine? Do not use for more than one week without advice from your doctor or health skin care technician. If your constipation returns, check with your doctor or health skin care technician. Drink plenty of water while taking this medicine. Drinking water helps decrease constipation. Stop using this medicine and contact your doctor or health skin care technician if you experience any rectal bleeding or do not have a bowel movement after use. These could be signs of a more serious condition. You have been given the following additional information: Constipation (Adult) Ondansetron Oral disintegrating tablet Docusate Sodium Oral tablet (Electronically signed by Siddhartha Pastrana Dr. 10/06/2016 8:42)
--- NOTE | 2016-10-06 08:43 | ED MED RECONCILIATION SUMMARY ---
Patient: NAHOMI MOE Medication Reconciliation Report [facility] VisitID: [id number] [address] [place] [address] 81y, F Registration Date/Time: 10/03/2016 Weight: 68.4 kg Height/Length: 62 in. BMI: 27.6 ALLERGIES: NKDA The patient's Home Medications are listed below: CONTINUE TAKING THE FOLLOWING MEDICATIONS: Advil Oral 200 mg, 3x a day Aricept Oral Carbidopa-Levodopa Oral 25/100 mg, 2x a day Celecoxib Oral Cortisone injections in hips Entacapone Oral (200 mg), 2x daily Glucosamine Chondroitin Joint Oral Levothyroxine Sodium Oral 75 mcg Lisinopril Oral 40 mg Lovastatin Oral 40mg Magnesium Oral 64 mg sa, 2x a day Melatonin Oral Ropinerole 25mcg HCG , 2x a day Tylenol Oral 1000mg, 3x a day The source(s) of the original Home Medication information: Not obtained. The following Medications were given to the patient in the Emergency Department: IV NS IV Fluids bolus 0, then 1000 mL/hr, administered: 10/03/2016 2:29:00 PM Ceftriaxone [IVPB] IVPB bolus 0, then 1 gm 100 mL/hr, administered: 10/03/2016 4:28:00 PM The following Medications were prescribed to the patient: Colace 100 mg capsules (available over the counter): take 1 capsule orally, twice daily and for 14 days. One refill. Substitution is permissible. -- Siddhartha Pastrana Dr. Zofrnirali (orally disintegrating tablets) 4 mg: take 1 orally every 6 hours as needed for nausea and vomiting. Dispense ten (10). No refill. Substitution is permissible. -- Siddhartha Pastrana Dr.
--- NOTE | 2016-10-06 08:43 | ED MED RECONCILIATION SUMMARY ---
Patient: NAHOMI MOE Medication Reconciliation Report [facility] VisitID: [id number] [address] [place] [address] 81y, F Registration Date/Time: 10/03/2016 Weight: 68.4 kg Height/Length: 62 in. BMI: 27.6 ALLERGIES: NKDA The patient's Home Medications are listed below: CONTINUE TAKING THE FOLLOWING MEDICATIONS: Advil Oral 200 mg, 3x a day Aricept Oral Carbidopa-Levodopa Oral 25/100 mg, 2x a day Celecoxib Oral Cortisone injections in hips Entacapone Oral (200 mg), 2x daily Glucosamine Chondroitin Joint Oral Levothyroxine Sodium Oral 75 mcg Lisinopril Oral 40 mg Lovastatin Oral 40mg Magnesium Oral 64 mg sa, 2x a day Melatonin Oral Ropinerole 25mcg HCG , 2x a day Tylenol Oral 1000mg, 3x a day The source(s) of the original Home Medication information: Not obtained. The following Medications were given to the patient in the Emergency Department: IV NS IV Fluids bolus 0, then 1000 mL/hr, administered: 10/03/2016 2:29:00 PM Ceftriaxone [IVPB] IVPB bolus 0, then 1 gm 100 mL/hr, administered: 10/03/2016 4:28:00 PM The following Medications were prescribed to the patient: Colace 100 mg capsules (available over the counter): take 1 capsule orally, twice daily and for 14 days. One refill. Substitution is permissible. -- Siddhartha Pastrana Dr. Zofrnirali (orally disintegrating tablets) 4 mg: take 1 orally every 6 hours as needed for nausea and vomiting. Dispense ten (10). No refill. Substitution is permissible. -- Siddhartha Pastrana Dr.
== END 2016-10-03 17:30 | disposition home or self-care (01) ==
LOC: ED SRH 10:33
DX: R94.5 Abnormal results of liver function studies (principal); K59.00 Constipation, unspecified; R82.99 Other abnormal findings in urine; Z87.440 Personal history of urinary (tract) infections; R10.30 Lower abdominal pain, unspecified; I10 Essential (primary) hypertension; G20 Parkinson's disease; Z79.52 Long term (current) use of systemic steroids; Z79.1 Long term (current) use of non-steroidal anti-inflammatories (NSAID); Z79.899 Other long term (current) drug therapy
CPT/HCPCS: 81460; 90004; 90100; 95059

== ENCOUNTER 2016-11-05 16:46 | Emergency (ER) | payer OTHER ==
--- NOTE | 2016-11-05 18:45 | DIAGNOSTIC IMAGING REPORT ---
PROCEDURE: XR LUMBAR SPINE 2 OR 3 VIEWS INDICATION: LOWER BACK PAIN TECHNIQUE: Three views. COMPARISON: None. FINDINGS: Osseous structures are osteopenic. Moderate multilevel degenerative changes primarily affecting the lower lumbar facet joints No evidence of an acute process or fracture. There are marked calcified atheromatous changes of the aorta and iliac vessels. Surgical clips right upper quadrant suggest prior cholecystectomy. IMPRESSION: 1. Osteopenia. 2. Moderate degenerative changes of the lumbar spine.
--- NOTE | 2016-11-05 20:52 | ED ORDER SUMMARY ---
..... Patient: NAHOMI MOE OrderSheet [facility] VisitID: [id number] [place] [address] 81y, F Registration Date/Time: 11/05/2016 ORDER SHEET Weight: 68.4 kg (stated) Allergies: NKDA GENERAL ORDERS: CBC w Diff Urgent (17:58 11/05/2016 Yang Canseco) (Ack 18:00 LNations ER Tech1) (19:27 JSanders R.N.) CMP Urgent (17:58 11/05/2016 Yang Canseco) (Ack 18:00 LNations ER Tech1) (19:27 SHELLanders R.N.) UA-Culture if indicated Urgent (17:58 11/05/2016 Yang Canseco) (Ack 18:01 LNations ER Tech1) (19:27 JSanders R.N.) Amylase Urgent (17:58 11/05/2016 Yang Canseco) (Ack 18:01 LNations ER Tech1) (19:27 JSanders R.N.) Lipase Urgent (17:58 11/05/2016 Yang Canseco) (Ack 18:01 LNations ER Tech1) (19:27 SHELLanders R.N.) Lumbar Spine 2 or 3V Urgent (18:13 11/05/2016 Yang Canseco) (Ack 18:16 LNations ER Tech1) (18:35 LNations ER Tech1) Hip 2V Right w AP Pelvis Urgent (19:27 11/05/2016 Yang Canseco) (Ack 19:35 RKaruga) (19:41 MCampbell) MEDICATION ORDERS: IV FLUIDS: IV Saline Lock (17:58 11/05/2016 Yang Canseco) (18:48 SSambou R.N.) ORDER SHEET NOTES: [Electronically signed by Zuri Garza R.N. (02:37 11/06/2016)] [Electronically signed by Siddhartha Pastrana Dr. (08:51 11/06/2016)] [Electronically locked/signed by Zuri Garza R.N. (02:37 11/06/2016)]
--- NOTE | 2016-11-05 20:52 | ED CLINICAL REPORT ---
Clinical Report - Physicians/Mid Levels [facility] [address] [place] [address] 11/05/2016 16:45 Patient: NAHOMI MOE Time Seen: 17:57; initial patient contact. Arrived- By private vehicle. Historian- patient. HISTORY OF PRESENT ILLNESS Chief Complaint: FLANK PAIN. At its maximum, severity described as moderate. When seen in the E.D., severity described as mild. Modifying factors- worsened by movement and walking. Relieved by rest. It is described as "pain" and it is described as located in the right flank and the right pelvis and radiating to the right hip and thigh. This started several months ago and is still present. It was gradual in onset and has been intermittent. No nausea, loss of appetite, vomiting or diarrhea. Similar symptoms previously: Many times. Recent medical care: Not recently seen/assessed. REVIEW OF SYSTEMS No constipation, black stools, difficulty with urination, pain with urination or urinary frequency. No fever, chills or back pain. She has had joint pain. All systems otherwise negative, except as recorded above. PAST HISTORY Hernia. Constipation. Abnormal Liver Function Test. Contusion. Dizziness. Hypovolemia. Tetanus Status. Immunizations. Herpes Zoster. Breast Cancer. Elevated Cholesterol. Hypertension. Parkinson's Disease. Abdominal tumor. ADDITIONAL SURGERIES: Cholecystectomy. Colonoscopy. . Lower eyelid surgery. Mastectomy. Tonsillectomy. Medications: Ondansetron Oral 4 mg, as needed (ODT). MiraLax Oral 1 packet, daily. Omeprazole Oral 20 mg, daily. Melatonin Oral (Tablet 10 mg), q hs. Glucosamine-Chondroitin Oral 1500 mg/ 800 mg/ 750 mg, daily. Cranberry Oral 300 mg, 3x a day. Vitamin D Oral (Capsule 2000 unit), daily. Sertraline HCl Oral (Tablet 100 mg) 1-1/2 tablets, daily. ROPINIRole HCl Oral (Tablet 0.25 mg), tid. Ranitidine HCl Oral 150 mg, daily. PreserVision AREDS 2 Oral 1 cap, bid. Polyethylene Glycol 3350 Oral (self administers). Magnesium Oral 250 mg, daily. Lovastatin Oral (Tablet 40 mg), daily. Lisinopril Oral 40 mg, daily. Levothyroxine Sodium Oral (Tablet 75 mcg), daily. Entacapone Oral (Tablet 200 mg) 1 tablet, qid. Docusate Sodium Oral (Capsule 100 mg) 1 capsule, bid. Celecoxib Oral (Capsule 100 mg), 2x a day. Carbidopa-Levodopa Oral (Tablet 25-100 mg) 1-1/2 tablets, 5 times a day. ASA Oral 81 mg, daily. Acetaminophen Oral (Tablet 500 mg) 2 tablets, 3x a day. Allergies: NKDA. SOCIAL HISTORY Former smoker. No alcohol use or drug use. ADDITIONAL NOTES The nursing notes have been reviewed. PHYSICAL EXAM Vital Signs: 11/05/2016 16:49 BP: 139/52. HR: 64. RR: 18. O2 saturation: 100%. Temp: 97.8 F. Pain level now: 7/10. Have been reviewed. Hypotensive. Heart rate normal. Respiratory rate normal. Temperature normal. Oxygen saturation normal. Appearance: Alert. Oriented X3. No acute distress. ENT: Pharynx normal. CVS: Normal heart rate and rhythm. Heart sounds normal. Respiratory: No respiratory distress. Breath sounds normal. Abdomen: Soft and nontender. Bowel sounds normal. No organomegaly. No mass. Back: Normal inspection. No CVA tenderness. Skin: Skin warm and dry. Normal skin color. Extremities: Right hip: mild tenderness located in the anterior and medial aspect of the hip. Limited ROM secondary to pain (diminished abduction, flexion, extension and external and internal rotation). Neurovascular intact distally. Right thigh: moderate tenderness located in the anterior and medial aspect of upper and mid thigh. Neurovascular intact distally. No deformity. Neuro: Oriented X 3. No motor deficit. No sensory deficit. LABS, X-RAYS, AND EKG LS-Spine X-rays: (1. Osteopenia. 2. Moderate degenerative changes of the lumbar spine.). Views: AP and lateral. Technique: good. The X-rays were independently viewed by me, interpreted by the radiologist and discussed with the radiologist. Prior films were not available for comparison. Pelvis X-ray: Joint spaces normal. No fracture or dislocation. Views: AP. Technique: good. The X-rays were independently viewed by me and interpreted contemporaneously by me. Prior films were not available for comparison. Rt Hip X-ray: No fracture. Normal alignment. No bony lesion. Soft tissues normal. Joint spaces normal. Views: 2 view hip series. Technique: good. The X-rays were independently viewed by me and interpreted contemporaneously by me. Prior films were not available for comparison. Laboratory Tests: UA-Culture if indicated: (SEDA: 11/05/2016 17:20) ( [facility] [place] 11/05/2016 18:37) Final results Test Result Flag Units (Reference) URINE COLOR YELLOW URINE APPEARANCE CLEAR URINE GLUCOSE NEGATIVE (NEGATIVE) URINE BILIRUBIN NEGATIVE (NEGATIVE) URINE KETONE NEGATIVE (NEGATIVE) URINE SPECIFIC GRAVITY 1.010 (1.010-1.030) URINE PH 5.5 (5.0-8.0) URINE PROTEIN NEGATIVE (NEGATIVE) URINE UROBILINOGEN 0.2 EU/dL (0.2-1.0) URINE NITRITE NEGATIVE (NEGATIVE) URINE BLOOD NEGATIVE (NEGATIVE) URINE LEUK ESTERASE NEGATIVE (NEGATIVE) URINE RBC NONE SEEN rbc/hpf (0-1) URINE WBC 0-1 wbc/hpf (0-1) URINE EPITHELIAL CELLS 0-1 EPI/hpf (0-5) URINE BACTERIA NONE SEEN (NONE SEEN) URINE COMMENT CULT NOT INDICATED URINE CULTURES ARE SET-UP BASED ON THE FOLLOWING CRITERIA:POSITIVE NITRITEPOSITIVE LEUKOCYTE ESTERASEGREATER THAN 10 WHITE BLOOD CELLSMODERATE (2+) OR GREATER BACTERIA CBC w Diff: (SEDA: 11/05/2016 18:40) ( [facility] [place] 11/05/2016 19:00) Final results Test Result Flag Units (Reference) WHITE BLOOD COUNT 9.0 K/uL (4.5-11.5) RED BLOOD COUNT 4.06 M/uL (4.00-5.20) HEMOGLOBIN 13.3 gm/dL (12.0-16.0) HEMATOCRIT 39.5 % (36.0-46.0) MEAN CELL VOLUME 97 fL (80-100) MEAN CORPUSCULAR HGB 33 pg (26-34) MEAN CORPUSCULAR HGB CONC 34 g/dL (31-37) RED CELL DISTRIBUTION WIDTH 14.4 % (11.6-14.8) PLATELET COUNT 204 K/uL (150-400) NEUTROPHIL % 70.8 % (50-75) LYMPH % 19.0 L % (25-40) MONO % 8.0 % (3-14) EOSINOPHIL % 1.7 % (0-4) BASOPHIL % 0.5 % (0-2) CMP: (SEDA: 11/05/2016 18:40) ( MsgRcvd 11/05/2016 19:12) Final results Test Result Flag Units (Reference) GLUCOSE 109 mg/dL (70-110) BUN 24 H mg/dL (7-18) CREATININE 0.7 mg/dL (0.6-1.3) Estimated GFR >60 mL/min Estimated GFR- >60 mL/min Note: Persistent reduction over 3 months in eGFR<60 mL/min/1.73 m2 defines CKD. Patients with eGFR values>=60 mL/min/1.73 m2 may also have CKD if evidence ofpersistent proteinuria. Additional information may be foundat www.[email or web address].org. SODIUM 138 mmol/L (136-145) POTASSIUM 4.5 mmol/L (3.5-5.1) CHLORIDE 104 mmol/L (98-107) CARBON DIOXIDE 28 mmol/L (21-32) CALCIUM 9.6 mg/dL (8.5-10.1) TOTAL PROTEIN 6.3 L g/dL (6.4-8.2) ALBUMIN 3.6 g/dL (3.3-5.0) BILIRUBIN, TOTAL 0.4 mg/dL (0.0-1.0) ALKALINE PHOSPHATASE 66 U/L (46-116) AST (SGOT) 31 U/L (15-37) ALT (SGPT) 9 L U/L (12-78) LIPASE 126 U/L (73-393) AMYLASE 37 U/L (25-115) . PROGRESS AND PROCEDURES Course of Care: Pain in the sartorius muscle w/ palpation and ROM. Disposition: Discharged home in good and improved condition. Condition: good. CLINICAL IMPRESSION Muscle strain of the right hip. INSTRUCTIONS Your Current Medications: CONTINUE TAKING THE FOLLOWING MEDICATIONS: Acetaminophen Oral : Tablet 500 mg, 2 tablets 3x a day. ASA Oral : 81 mg daily. Carbidopa-Levodopa Oral : Tablet 25-100 mg, 1-1/2 tablets 5 times a day. Celecoxib Oral : Capsule 100 mg, 2x a day. Cranberry Oral : 300 mg 3x a day. Docusate Sodium Oral : Capsule 100 mg, 1 capsule bid. Entacapone Oral : Tablet 200 mg, 1 tablet qid. Glucosamine-Chondroitin Oral : 1500 mg/ 800 mg/ 750 mg daily. Levothyroxine Sodium Oral : Tablet 75 mcg, daily. Lisinopril Oral : 40 mg daily. Lovastatin Oral : Tablet 40 mg, daily. Magnesium Oral : 250 mg daily. Melatonin Oral : Tablet 10 mg, q hs. MiraLax Oral : 1 packet daily. Omeprazole Oral : 20 mg daily. Ondansetron Oral : 4 mg, prn, ODT. Polyethylene Glycol 3350 Oral : self administers. PreserVision AREDS 2 Oral : 1 cap bid. Ranitidine HCl Oral : 150 mg daily. ROPINIRole HCl Oral : Tablet 0.25 mg, tid. Sertraline HCl Oral : Tablet 100 mg, 1-1/2 tablets daily. Vitamin D Oral : Capsule 2000 unit, daily. Prescription Medications: Tramadol 50 mg: take 1 orally every 6 hours as needed for pain and stiffness. Do not take more than 8 tablets in a 24 hour period. Dispense twenty (20). No refills. Follow-up: Follow up with your doctor in about two days. Call for an appointment. Blood pressure screening was not performed during this visit because the patient has an active diagnosis of hypertension. (Electronically signed by Siddhartha Pastrana Dr. 11/06/2016 8:51)
--- NOTE | 2016-11-05 20:52 | ED ORDER SUMMARY ---
..... Patient: NAHOMI MOE OrderSheet Formerly [facility] VisitID: [id number] [place] [address] 81y, F Registration Date/Time: 11/05/2016 ORDER SHEET Weight: 68.4 kg (stated) Allergies: NKDA GENERAL ORDERS: CBC w Diff Urgent (17:58 11/05/2016 Yang Canseco) (Ack 18:00 LNations ER Tech1) (19:27 JSanders R.N.) CMP Urgent (17:58 11/05/2016 Yang Canseco) (Ack 18:00 LNations ER Tech1) (19:27 SHELLanders R.N.) UA-Culture if indicated Urgent (17:58 11/05/2016 Yang Canseco) (Ack 18:01 LNations ER Tech1) (19:27 JSanders R.N.) Amylase Urgent (17:58 11/05/2016 Yang Canseco) (Ack 18:01 LNations ER Tech1) (19:27 JSanders R.N.) Lipase Urgent (17:58 11/05/2016 Yang Canseco) (Ack 18:01 LNations ER Tech1) (19:27 SHELLanders R.N.) Lumbar Spine 2 or 3V Urgent (18:13 11/05/2016 Yang Canseco) (Ack 18:16 LNations ER Tech1) (18:35 LNations ER Tech1) Hip 2V Right w AP Pelvis Urgent (19:27 11/05/2016 Yang Canseco) (Ack 19:35 RKaruga) (19:41 MCampbell) MEDICATION ORDERS: IV FLUIDS: IV Saline Lock (17:58 11/05/2016 Yang Canseco) (18:48 SSambou R.N.) ORDER SHEET NOTES: [Electronically signed by Zuri Garza R.N. (02:37 11/06/2016)] [Electronically signed by Siddhartha Pastrana Dr. (08:51 11/06/2016)] [Electronically locked/signed by Zuri Garza R.N. (02:37 11/06/2016)]
--- NOTE | 2016-11-05 20:52 | ED NURSING NOTES ---
Clinical Report - Nurses [place] [address] [place] [address] 11/05/2016 16:45 [id number] Triage time 16:49. Acuity: LEVEL 4. Chief Complaint: ABDOMINAL PAIN and FLANK PAIN. Alert. No acute distress. ANA MARIA COMA SCORE: Ana Maria Coma Scale: 15- eyes open spontaneously (4); best verbal response- oriented x 4 (5); best motor response- obeys commands (6). --17:01 Melida Sanchez R.N. 16:49 11/05/16. BP: 139/52. HR: 64. RR: 18. O2 saturation: 100%. Temp: 97.8 F (oral). Pain level now: 10/27. --17:01 Melida Sanchez R.N. Weight: 68.4 kg stated. Height/Length: 62 inches Per Patient. BMI: 27.6. --16:56 Melida Sanchez R.N. Medications Acetaminophen Oral (Tablet 500 mg) 2 tablets, 3x a day. --17:20 Melida Sanchez R.N. ASA Oral 81 mg, daily. --17:21 Melida Sanchez R.N. Carbidopa-Levodopa Oral (Tablet 25-100 mg) 1-1/2 tablets, 5 times a day. --17:22 Melida Sanchez R.N. Celecoxib Oral (Capsule 100 mg), 2x a day. --17:22 Melida Sanchez R.N. Docusate Sodium Oral (Capsule 100 mg) 1 capsule, bid. --17:23 Melida Sanchez R.N. Entacapone Oral (Tablet 200 mg) 1 tablet, qid. --17:24 Melida Sanchez R.N. Levothyroxine Sodium Oral (Tablet 75 mcg), daily. --17:25 Melida Sanchez R.N. Lisinopril Oral 40 mg, daily. --17:25 Melida Sanchez R.N. Lovastatin Oral (Tablet 40 mg), daily. --17:26 Melida Sanchez R.N. Magnesium Oral 250 mg, daily. --17:26 Melida Sanchez R.N. Polyethylene Glycol 3350 Oral (self administers). --17:27 Melida Sanchez R.N. PreserVision AREDS 2 Oral 1 cap, bid. --17:28 Melida Sanchez R.N. Ranitidine HCl Oral 150 mg, daily. --17:28 Melida Sanchez R.N. ROPINIRole HCl Oral (Tablet 0.25 mg), tid. --17:29 Melida Sanchez R.N. Sertraline HCl Oral (Tablet 100 mg) 1-1/2 tablets, daily. --17:29 Melida Sanchez R.N. Vitamin D Oral (Capsule 2000 unit), daily. --17:30 Melida Sanchez R.N. Cranberry Oral 300 mg, 3x a day. --17:30 Melida Sanchez R.N. Glucosamine-Chondroitin Oral 1500 mg/ 800 mg/ 750 mg, daily. --17:31 Melida Sanchez R.N. Melatonin Oral (Tablet 10 mg), q hs. --17:32 Melida Sanchez R.N. Omeprazole Oral 20 mg, daily. --17:32 Melida Sanchez R.N. MiraLax Oral 1 packet, daily. --17:33 Melida Sanchez R.N. Ondansetron Oral 4 mg, as needed (ODT). --17:34 Melida Sanchez R.N. Medication/allergy information source: the patient's custodial record. --17:01 Melida Sanchez R.N. Allergies NKDA. --16:54 Melida Sanchez R.N. History Arrived by EMS. Historian: EMS and patient. Accompanied by (EMS). Primary physician ([place]). Onset. ("a long time"). ( states she slept in her chair last night because that was the only comfortable position, family states she didn't feel good yesterday with right groin/hip pain). SOCIAL HX: Former smoker. No alcohol use or drug use. LEARNING NEEDS ASSESSMENT: The learning needs assessment revealed no barriers. FALL RISK ASSESSMENT: Fall risk assessment completed. Risk factors identified include patient age greater than 65 years and impairment of mobility. Fall interventions initiated. Patient placed on stretcher. Side rails up x2. Brakes on Bed in low position. FUNCTIONAL ASSESSMENT: Functional assessment performed: requires assistance with the activities of daily living; uses wheelchair. --17:01 Melida Sanchez R.N. PROBLEMS: Hernia. Constipation. Abnormal Liver Function Test. Contusion. Dizziness. Hypovolemia. Tetanus Status. Immunizations. Herpes Zoster. Breast Cancer. Elevated Cholesterol. Hypertension. Parkinson's Disease. --16:55 Melida Sanchez R.N. Abdominal tumor. --17:02 Melida Sanchez R.N. ADDITIONAL SURGERIES: Cholecystectomy. Colonoscopy. . Lower eyelid surgery. Mastectomy. Tonsillectomy. --16:55 Melida Sancehz R.N. Assessment GENERAL / NEURO / PSYCH: Alert. Oriented X 4. Appears in no acute distress. Patient appears calm and cooperative. RESPIRATORY: Respirations not labored. SKIN: Skin is warm and dry. --17:01 Melida Sanchez R.N. Interventions ID band on patient. To treatment room. --17:01 Melida Sanchez R.N. The patient has advanced directives. --17:35 Melida Sanchez R.N. PHYSICAL ASSESSMENT 17:14 11/05/16. To room via stretcher. Patient gowned. GENERAL / NEURO / PSYCH: Alert. Appears in no acute distress. RESPIRATORY: Respirations not labored. SKIN: Skin is warm and dry. --17:14 Melida Sanchez R.N. NURSING PROGRESS NOTES 17:14 11/05/16. Patient gowned. Head of bed elevated. Call light placed in reach. Side rails up x 2. Bed placed in lowest position. Brakes of bed on. --17:14 Melida Sanchez R.N. 17:14 assisted to BSC by 2 RN's, pt was able to stand and pivot with minimal assist. --17:15 Melida Sanchez R.N. 18:48 11/05/2016 Site #1 started via IV in the left antecubital space with an 22g angiocath, with aseptic technique and good blood return; one attempt. Blood drawn: rainbow set. Labeled in the presence of the patient and sent to the lab. Saline lock flushed with 10 mL saline. --18:48 Sheriff De Leon R.N. Care transferred and report received (MINDY Rubio). --19:09 Zuri Garza R.N. 19:32 11/05/16. The patient is calm. SKIN: Skin is warm and dry. Skin color within normal limits. --19:32 Zuri Garza R.N. 19:28 11/05/16. BP: 131/44 (regular adult cuff) taken on the left arm, while lying. HR: 64. RR: 18. O2 saturation: 96% on room air. Pain level now: 11/27. --19:32 Zuri Garza R.N. Patient transported to radiology by stretcher with tech. (19:31 Nov 05 2016). --19:32 Zuri Garza R.N. Patient returned from radiology by stretcher with tech. (19:47 Nov 05 2016). --19:47 Zuri Garza R.N. 20:44 11/05/16. ( Daughters at bedside, they state their understanding to results of hip x-ray negative, she will be set up with ride from EMS to home). --20:44 Zuri Garza R.N. 20:41 11/05/16. BP: 158/54 (regular adult cuff) taken on the left arm, while sitting. HR: 77. RR: 20. O2 saturation: 97% on room air. Pain level now: 08/27. --20:44 Zuri Garza R.N. 20:00 11/05/16. BP: 141/62 (regular adult cuff) taken on the left arm, while sitting. HR: 64. RR: 20. O2 saturation: 96% on room air. Pain level now: 11/27. --02:24 Zuri Garza R.N. 20:15 11/05/16. BP: 154/71 (regular adult cuff) taken on the left arm, while lying. HR: 67. RR: 20. O2 saturation: 96% on room air. Pain level now: 11/27. --02:25 Zuri Garza R.N. 20:30 11/05/16. BP: 158/54 (regular adult cuff) taken on the left arm, while lying. HR: 66. RR: 20. O2 saturation: 97%. Pain level now: 11/27. --02:26 Zuri Garza R.N. DISPOSITION / DISCHARGE 21:11/05/2016 Site #1 removed upon discharge. Bandaid applied. --21: Zuri Garza R.N. 21:11/05/16. Condition at departure: unchanged. No learning barriers present. Discharge instructions provided and reviewed with the patient and family. Reviewed medication(s) side effects, precautions, dosing and course information. Prescription(s) given to the patient. Patient and family verbalized understanding. Written instructions provided in [place]. The patient was discharged by the physician. She was discharged home and accompanied by family. She left the Emergency Department via ambulance and on a stretcher. Driving (EMS). --21:08 Zuri Garza R.N. 21:06 11/05/16. BP: 133/71 (regular adult cuff) taken on the left arm, while sitting. HR: 77. RR: 20. O2 saturation: 95% on room air. Temp: 97.7 F (oral). Pain level now: 07/28. --21:08 Zuri Garza R.N. 21:11/05/16. ( patient given new depends to change into, daughters helping her get dressed, ambulance will be here at 2120). --21:09 Zuri Garza R.N. Departure time: 21:Nov 05 2016. --21:26 Zuri Garza R.N. Locked/Released at 11/06/2016 2:37 by Zuri Garza R.N.
--- NOTE | 2016-11-05 21:27 | DIAGNOSTIC IMAGING REPORT ---
PROCEDURE: XR HIP 2VW W W/O AP PELVIS-RT INDICATION: PAIN IN JOINT TECHNIQUE: AP view of the pelvis and hips with lateral view of the right hip. COMPARISON: Comparison is made radiographs of the pelvis and right hip on 08/15/2016. FINDINGS: RIGHT HIP: Osseous structures and joint spaces are normal. PELVIS: Osseous pelvis is normal. IMPRESSION: 1. Negative pelvis and right hip.
--- NOTE | 2016-11-06 08:52 | ED DISCHARGE INSTRUCTIONS ---
Patient: NAHOMI MOE General Instructions [facility] VisitID: [id number] [place] [address] 81y, F Registration Date/Time: 11/05/2016 Muscle strain of the right hip. INSTRUCTIONS Your Current Medications: CONTINUE TAKING THE FOLLOWING MEDICATIONS: Acetaminophen Oral : Tablet 500 mg, 2 tablets 3x a day. ASA Oral : 81 mg daily. Carbidopa-Levodopa Oral : Tablet 25-100 mg, 1-1/2 tablets 5 times a day. Celecoxib Oral : Capsule 100 mg, 2x a day. Cranberry Oral : 300 mg 3x a day. Docusate Sodium Oral : Capsule 100 mg, 1 capsule bid. Entacapone Oral : Tablet 200 mg, 1 tablet qid. Glucosamine-Chondroitin Oral : 1500 mg/ 800 mg/ 750 mg daily. Levothyroxine Sodium Oral : Tablet 75 mcg, daily. Lisinopril Oral : 40 mg daily. Lovastatin Oral : Tablet 40 mg, daily. Magnesium Oral : 250 mg daily. Melatonin Oral : Tablet 10 mg, q hs. MiraLax Oral : 1 packet daily. Omeprazole Oral : 20 mg daily. Ondansetron Oral : 4 mg, prn, ODT. Polyethylene Glycol 3350 Oral : self administers. PreserVision AREDS 2 Oral : 1 cap bid. Ranitidine HCl Oral : 150 mg daily. ROPINIRole HCl Oral : Tablet 0.25 mg, tid. Sertraline HCl Oral : Tablet 100 mg, 1-1/2 tablets daily. Vitamin D Oral : Capsule 2000 unit, daily. Prescription Medications: Tramadol 50 mg: take 1 orally every 6 hours as needed for pain and stiffness. Do not take more than 8 tablets in a 24 hour period. Dispense twenty (20). No refills. Follow-up: Follow up with your doctor in about two days. Call for an appointment. Blood pressure screening was not performed during this visit because the patient has an active diagnosis of hypertension. ADDITIONAL INFORMATION Muscle Strain,Extremity A MUSCLE STRAIN is a stretching and tearing of muscle fibers. This causes pain, especially with motion of that muscle. There may also be some swelling and bruising. Home Care: 1) Keep the injured area raised to reduce pain and swelling. This is especially important during the first 48 hours. 2) Make an ice pack (ice cubes in a plastic bag, wrapped in a towel) and apply for 20 minutes every 1-2 hours the first day. You should continue with ice packs 3-4 times a day for the second and third days. Unless otherwise instructed, on the fourth day you may begin hot soaks or hot packs (small towel soaked in hot water) 3-4 times a day while you gently exercise the involved area. 3) You may use acetaminophen (Tylenol) or ibuprofen (Motrin, Advil) to control pain, unless another medicine was prescribed. [ NOTE : If you have chronic liver or kidney disease or ever had a stomach ulcer or GI bleeding, talk with your doctor before using these medicines.] 4) For LEG STRAINS: If CRUTCHES have been recommended, do not bear full weight on the injured leg until you can do so without pain. You may return to sports when you are able to hop and run on the injured leg without pain. Follow Up with your doctor or this facility if you are not improving within the next five days. Get Prompt Medical Attention if any of the following occur: -- Fingers or toes become swollen, cold, blue, numb or tingly -- Pain or swelling increases Tramadol Hydrochloride Oral tablet What is this medicine? TRAMADOL (TRA ma dole) is a pain reliever. It is used to treat moderate to severe pain in adults. How should I use this medicine? Take this medicine by mouth with a full glass of water. Follow the directions on the prescription label. If the medicine upsets your stomach, take it with food or milk. Do not take more medicine than you are told to take. Talk to your retail loan originator regarding the use of this medicine in children. Special care may be needed. What side effects may I notice from receiving this medicine? Side effects that you should report to your doctor or health career development director as soon as possible: allergic reactions like skin rash, itching or hives, swelling of the face, lips, or tongue breathing difficulties, wheezing confusion itching light headedness or fainting spells redness, blistering, peeling or loosening of the skin, including inside the mouth seizures Side effects that usually do not require medical attention (report to your doctor or health career development director if they continue or are bothersome): constipation dizziness drowsiness headache nausea, vomiting What may interact with this medicine? Do not take this medicine with any of the following medications: MAOIs like Carbex, Eldepryl, Marplan, Nardil, and Parnate This medicine may also interact with the following medications: alcohol or medicines that contain alcohol antihistamines benzodiazepines bupropion carbamazepine or oxcarbazepine clozapine cyclobenzaprine digoxin furazolidone linezolid medicines for depression, anxiety, or psychotic disturbances medicines for migraine headache like almotriptan, eletriptan, frovatriptan, naratriptan, rizatriptan, sumatriptan, zolmitriptan medicines for pain like pentazocine, buprenorphine, butorphanol, meperidine, nalbuphine, and propoxyphene medicines for sleep muscle relaxants naltrexone phenobarbital phenothiazines like perphenazine, thioridazine, chlorpromazine, mesoridazine, fluphenazine, prochlorperazine, promazine, and trifluoperazine procarbazine warfarin What if I miss a dose? If you miss a dose, take it as soon as you can. If it is almost time for your next dose, take only that dose. Do not take double or extra doses. Where should I keep my medicine? Keep out of the reach of children. Store at room temperature between 15 and 30 degrees C (59 and 86 degrees F). Keep container tightly closed. Throw away any unused medicine after the expiration date. What should I tell my health care provider before I take this medicine? They need to know if you have any of these conditions: brain tumor depression drug abuse or addiction head injury if you frequently drink alcohol containing drinks kidney disease or trouble passing urine liver disease lung disease, asthma, or breathing problems seizures or epilepsy suicidal thoughts, plans, or attempt; a previous suicide attempt by you or a family member an unusual or allergic reaction to tramadol, codeine, other medicines, foods, dyes, or preservatives or trying to get breast-feeding What should I watch for while using this medicine? Tell your doctor or health career development director if your pain does not go away, if it gets worse, or if you have new or a different type of pain. You may develop tolerance to the medicine. Tolerance means that you will need a higher dose of the medicine for pain relief. Tolerance is normal and is expected if you take this medicine for a long time. Do not suddenly stop taking your medicine because you may develop a severe reaction. Your body becomes used to the medicine. This does NOT mean you are addicted. Addiction is a behavior related to getting and using a drug for a non-medical reason. If you have pain, you have a medical reason to take pain medicine. Your doctor will tell you how much medicine to take. If your doctor wants you to stop the medicine, the dose will be slowly lowered over time to avoid any side effects. You may get drowsy or dizzy. Do not drive, use machinery, or do anything that needs mental alertness until you know how this medicine affects you. Do not stand or sit up quickly, especially if you are an older patient. This reduces the risk of dizzy or fainting spells. Alcohol can increase or decrease the effects of this medicine. Avoid alcoholic drinks. You may have constipation. Try to have a bowel movement at least every 2 to 3 days. If you do not have a bowel movement for 3 days, call your doctor or health career development director. Your mouth may get dry. Chewing sugarless gum or sucking hard candy, and drinking plenty of water may help. Contact your doctor if the problem does not go away or is severe. You have been given the following additional information: Muscle Strain, Extremity Tramadol Hydrochloride Oral tablet (Electronically signed by Siddhartha Pastrana Dr. 11/06/2016 8:51)
--- NOTE | 2016-11-06 08:52 | ED MED RECONCILIATION SUMMARY ---
Patient: NAHOMI MOE Medication Reconciliation Report [facility] VisitID: [id number] [place] [address] 81y, F Registration Date/Time: 11/05/2016 Weight: 68.4 kg Height/Length: 62 in. BMI: 27.6 ALLERGIES: NKDA The patient's Home Medications are listed below: CONTINUE TAKING THE FOLLOWING MEDICATIONS: Acetaminophen Oral (500 mg) 2 tablets, 3x a day ASA Oral 81 mg, daily Carbidopa-Levodopa Oral (25-100 mg) 1-1/2 tablets, 5 times a day Celecoxib Oral (100 mg), 2x a day Cranberry Oral 300 mg, 3x a day Docusate Sodium Oral (100 mg) 1 capsule, bid Entacapone Oral (200 mg) 1 tablet, qid Glucosamine-Chondroitin Oral 1500 mg/ 800 mg/ 750 mg, daily Levothyroxine Sodium Oral (75 mcg), daily Lisinopril Oral 40 mg, daily Lovastatin Oral (40 mg), daily Magnesium Oral 250 mg, daily Melatonin Oral (10 mg), q hs MiraLax Oral 1 packet, daily Omeprazole Oral 20 mg, daily Ondansetron Oral 4 mg, ODT Polyethylene Glycol 3350 Oral, self administers PreserVision AREDS 2 Oral 1 cap, bid Ranitidine HCl Oral 150 mg, daily ROPINIRole HCl Oral (0.25 mg), tid Sertraline HCl Oral (100 mg) 1-1/2 tablets, daily Vitamin D Oral (2000 unit), daily The source(s) of the original Home Medication information: patient's care home record The following Medications were given to the patient in the Emergency Department: None. The following Medications were prescribed to the patient: Tramadol 50 mg: take 1 orally every 6 hours as needed for pain and stiffness. Do not take more than 8 tablets in a 24 hour period. Dispense twenty (20). No refills. -- Siddhartha Pastrana Dr.
--- NOTE | 2016-11-06 08:52 | ED MAR SUMMARY ---
..... Medication Administration Record [facility] [address] [place], [place] [id number] Patient: NAHOMI MOE Visit ID: [id number] 81y, F Weight: 68.4 kg Height/Length: 62 in BMI: 27.6 ALLERGIES: NKDA
--- NOTE | 2016-11-06 08:52 | ED MAR SUMMARY ---
..... Medication Administration Record [facility] [address] [place], [place] [id number] Patient: NAHOMI MOE Visit ID: [id number] 81y, F Weight: 68.4 kg Height/Length: 62 in BMI: 27.6 ALLERGIES: NKDA
--- NOTE | 2016-11-06 08:52 | ED MED RECONCILIATION SUMMARY ---
Patient: NAHOMI MOE Medication Reconciliation Report [facility] VisitID: [id number] [place] [address] 81y, F Registration Date/Time: 11/05/2016 Weight: 68.4 kg Height/Length: 62 in. BMI: 27.6 ALLERGIES: NKDA The patient's Home Medications are listed below: CONTINUE TAKING THE FOLLOWING MEDICATIONS: Acetaminophen Oral (500 mg) 2 tablets, 3x a day ASA Oral 81 mg, daily Carbidopa-Levodopa Oral (25-100 mg) 1-1/2 tablets, 5 times a day Celecoxib Oral (100 mg), 2x a day Cranberry Oral 300 mg, 3x a day Docusate Sodium Oral (100 mg) 1 capsule, bid Entacapone Oral (200 mg) 1 tablet, qid Glucosamine-Chondroitin Oral 1500 mg/ 800 mg/ 750 mg, daily Levothyroxine Sodium Oral (75 mcg), daily Lisinopril Oral 40 mg, daily Lovastatin Oral (40 mg), daily Magnesium Oral 250 mg, daily Melatonin Oral (10 mg), q hs MiraLax Oral 1 packet, daily Omeprazole Oral 20 mg, daily Ondansetron Oral 4 mg, ODT Polyethylene Glycol 3350 Oral, self administers PreserVision AREDS 2 Oral 1 cap, bid Ranitidine HCl Oral 150 mg, daily ROPINIRole HCl Oral (0.25 mg), tid Sertraline HCl Oral (100 mg) 1-1/2 tablets, daily Vitamin D Oral (2000 unit), daily The source(s) of the original Home Medication information: patient's group home record The following Medications were given to the patient in the Emergency Department: None. The following Medications were prescribed to the patient: Tramadol 50 mg: take 1 orally every 6 hours as needed for pain and stiffness. Do not take more than 8 tablets in a 24 hour period. Dispense twenty (20). No refills. -- Siddhartha Pastrana Dr.
--- NOTE | 2016-11-06 08:52 | ED DISCHARGE INSTRUCTIONS ---
Patient: NAHOMI MOE General Instructions [facility] VisitID: [id number] [place] [address] 81y, F Registration Date/Time: 11/05/2016 Muscle strain of the right hip. INSTRUCTIONS Your Current Medications: CONTINUE TAKING THE FOLLOWING MEDICATIONS: Acetaminophen Oral : Tablet 500 mg, 2 tablets 3x a day. ASA Oral : 81 mg daily. Carbidopa-Levodopa Oral : Tablet 25-100 mg, 1-1/2 tablets 5 times a day. Celecoxib Oral : Capsule 100 mg, 2x a day. Cranberry Oral : 300 mg 3x a day. Docusate Sodium Oral : Capsule 100 mg, 1 capsule bid. Entacapone Oral : Tablet 200 mg, 1 tablet qid. Glucosamine-Chondroitin Oral : 1500 mg/ 800 mg/ 750 mg daily. Levothyroxine Sodium Oral : Tablet 75 mcg, daily. Lisinopril Oral : 40 mg daily. Lovastatin Oral : Tablet 40 mg, daily. Magnesium Oral : 250 mg daily. Melatonin Oral : Tablet 10 mg, q hs. MiraLax Oral : 1 packet daily. Omeprazole Oral : 20 mg daily. Ondansetron Oral : 4 mg, prn, ODT. Polyethylene Glycol 3350 Oral : self administers. PreserVision AREDS 2 Oral : 1 cap bid. Ranitidine HCl Oral : 150 mg daily. ROPINIRole HCl Oral : Tablet 0.25 mg, tid. Sertraline HCl Oral : Tablet 100 mg, 1-1/2 tablets daily. Vitamin D Oral : Capsule 2000 unit, daily. Prescription Medications: Tramadol 50 mg: take 1 orally every 6 hours as needed for pain and stiffness. Do not take more than 8 tablets in a 24 hour period. Dispense twenty (20). No refills. Follow-up: Follow up with your doctor in about two days. Call for an appointment. Blood pressure screening was not performed during this visit because the patient has an active diagnosis of hypertension. ADDITIONAL INFORMATION Muscle Strain,Extremity A MUSCLE STRAIN is a stretching and tearing of muscle fibers. This causes pain, especially with motion of that muscle. There may also be some swelling and bruising. Home Care: 1) Keep the injured area raised to reduce pain and swelling. This is especially important during the first 48 hours. 2) Make an ice pack (ice cubes in a plastic bag, wrapped in a towel) and apply for 20 minutes every 1-2 hours the first day. You should continue with ice packs 3-4 times a day for the second and third days. Unless otherwise instructed, on the fourth day you may begin hot soaks or hot packs (small towel soaked in hot water) 3-4 times a day while you gently exercise the involved area. 3) You may use acetaminophen (Tylenol) or ibuprofen (Motrin, Advil) to control pain, unless another medicine was prescribed. [ NOTE : If you have chronic liver or kidney disease or ever had a stomach ulcer or GI bleeding, talk with your doctor before using these medicines.] 4) For LEG STRAINS: If CRUTCHES have been recommended, do not bear full weight on the injured leg until you can do so without pain. You may return to sports when you are able to hop and run on the injured leg without pain. Follow Up with your doctor or this facility if you are not improving within the next five days. Get Prompt Medical Attention if any of the following occur: -- Fingers or toes become swollen, cold, blue, numb or tingly -- Pain or swelling increases Tramadol Hydrochloride Oral tablet What is this medicine? TRAMADOL (TRA ma dole) is a pain reliever. It is used to treat moderate to severe pain in adults. How should I use this medicine? Take this medicine by mouth with a full glass of water. Follow the directions on the prescription label. If the medicine upsets your stomach, take it with food or milk. Do not take more medicine than you are told to take. Talk to your laundry manager regarding the use of this medicine in children. Special care may be needed. What side effects may I notice from receiving this medicine? Side effects that you should report to your doctor or health restorative care technician as soon as possible: allergic reactions like skin rash, itching or hives, swelling of the face, lips, or tongue breathing difficulties, wheezing confusion itching light headedness or fainting spells redness, blistering, peeling or loosening of the skin, including inside the mouth seizures Side effects that usually do not require medical attention (report to your doctor or health restorative care technician if they continue or are bothersome): constipation dizziness drowsiness headache nausea, vomiting What may interact with this medicine? Do not take this medicine with any of the following medications: MAOIs like Carbex, Eldepryl, Marplan, Nardil, and Parnate This medicine may also interact with the following medications: alcohol or medicines that contain alcohol antihistamines benzodiazepines bupropion carbamazepine or oxcarbazepine clozapine cyclobenzaprine digoxin furazolidone linezolid medicines for depression, anxiety, or psychotic disturbances medicines for migraine headache like almotriptan, eletriptan, frovatriptan, naratriptan, rizatriptan, sumatriptan, zolmitriptan medicines for pain like pentazocine, buprenorphine, butorphanol, meperidine, nalbuphine, and propoxyphene medicines for sleep muscle relaxants naltrexone phenobarbital phenothiazines like perphenazine, thioridazine, chlorpromazine, mesoridazine, fluphenazine, prochlorperazine, promazine, and trifluoperazine procarbazine warfarin What if I miss a dose? If you miss a dose, take it as soon as you can. If it is almost time for your next dose, take only that dose. Do not take double or extra doses. Where should I keep my medicine? Keep out of the reach of children. Store at room temperature between 15 and 30 degrees C (59 and 86 degrees F). Keep container tightly closed. Throw away any unused medicine after the expiration date. What should I tell my health care provider before I take this medicine? They need to know if you have any of these conditions: brain tumor depression drug abuse or addiction head injury if you frequently drink alcohol containing drinks kidney disease or trouble passing urine liver disease lung disease, asthma, or breathing problems seizures or epilepsy suicidal thoughts, plans, or attempt; a previous suicide attempt by you or a family member an unusual or allergic reaction to tramadol, codeine, other medicines, foods, dyes, or preservatives or trying to get breast-feeding What should I watch for while using this medicine? Tell your doctor or health restorative care technician if your pain does not go away, if it gets worse, or if you have new or a different type of pain. You may develop tolerance to the medicine. Tolerance means that you will need a higher dose of the medicine for pain relief. Tolerance is normal and is expected if you take this medicine for a long time. Do not suddenly stop taking your medicine because you may develop a severe reaction. Your body becomes used to the medicine. This does NOT mean you are addicted. Addiction is a behavior related to getting and using a drug for a non-medical reason. If you have pain, you have a medical reason to take pain medicine. Your doctor will tell you how much medicine to take. If your doctor wants you to stop the medicine, the dose will be slowly lowered over time to avoid any side effects. You may get drowsy or dizzy. Do not drive, use machinery, or do anything that needs mental alertness until you know how this medicine affects you. Do not stand or sit up quickly, especially if you are an older patient. This reduces the risk of dizzy or fainting spells. Alcohol can increase or decrease the effects of this medicine. Avoid alcoholic drinks. You may have constipation. Try to have a bowel movement at least every 2 to 3 days. If you do not have a bowel movement for 3 days, call your doctor or health restorative care technician. Your mouth may get dry. Chewing sugarless gum or sucking hard candy, and drinking plenty of water may help. Contact your doctor if the problem does not go away or is severe. You have been given the following additional information: Muscle Strain, Extremity Tramadol Hydrochloride Oral tablet (Electronically signed by Siddhartha Pastrana Dr. 11/06/2016 8:51)
== END 2016-11-05 21:26 | disposition home or self-care (01) ==
LOC: ED SRH 16:46
DX: S76.011A Strain of muscle, fascia and tendon of right hip, initial encounter (principal); X58.XXXA Exposure to other specified factors, initial encounter; Y93.9 Activity, unspecified; Y92.9 Unspecified place or not applicable; Y99.9 Unspecified external cause status; I10 Essential (primary) hypertension; E78.00 Pure hypercholesterolemia, unspecified; Z79.82 Long term (current) use of aspirin; Z79.899 Other long term (current) drug therapy; Z87.891 Personal history of nicotine dependence